=== PATIENT | male | born 1965 ===

== ENCOUNTER 2017-12-29 03:04 | Inpatient (IN) | payer OTHER ==
--- NOTE | 2017-12-29 04:01 | ED PDOC ---
Hyperglycemia/Hypoglycemia Time Seen by Provider: 12/29/17 03:11 Chief Complaint (Nursing): High Blood Sugar Chief Complaint (Provider): High Blood Sugar History Per: Patient History/Exam Limitations: no limitations Onset/Duration Of Symptoms: Days : The patient does not have any of the infectious symptoms listed except for those marked. Additional Complaint(s): 52 y/o male with a PMHx of HTN, high cholesterol and Type II Diabetes presents to the ED for possible hypoglycemia. Family states he isn't taking medications as prescribed and poor diet complaints. Patient was found in the bathroom altered. Family reports patient lost control of his body. EMS called and finger stick resulted in 40. An amp of D50 and symptoms resolved. Patient also reports of one episode of vomiting and two episodes of diarrhea today. Patient states he is currently fine and is much better. PMD: None Provided Past Medical History Reviewed: Historical Data, Nursing Documentation, Vital Signs Vital Signs: Last Vital Signs Temp 98.8 F 12/29/17 03:05 Pulse 76 12/29/17 03:05 Resp 18 12/29/17 03:05 BP 181/97 H 12/29/17 03:05 Pulse Ox 100 12/29/17 03:05 - Medical History PMH: Diabetes (Type II), HTN, Hypercholesterolemia, Hyperlipidemia - Surgical History Surgical History: No Surg Hx - Family History Family History: States: Unknown Family Hx - Home Medications Home Medications: Ambulatory Orders Medication Instructions Recorded Aspirin [Aspirin Chewable] 1 tab PO DAILY 12/29/17 Atorvastatin [Lipitor] 1 tab PO DAILY 12/29/17 Furosemide [Lasix] 1 tab PO Q2W 12/29/17 GlipiZIDE [Glucotrol] 1 tab PO BID 12/29/17 Lisinopril [Zestril] 1 tab PO DAILY 12/29/17 amLODIPine [Norvasc] 1 tab PO DAILY 12/29/17 hydroCHLOROthiazide [Hydrodiuril] 1 tab PO DAILY 12/29/17 - Allergies Allergies/Adverse Reactions: Allergies Allergy/AdvReac Type Severity Reaction Status Date / Time No Known Allergies Allergy Verified 12/29/17 03:17 Review of Systems ROS Statement: Except As Marked, All Systems Reviewed And Found Negative Constitutional: Positive for: Other (Low Blood Sugar) Physical Exam - Reviewed Nursing Documentation Reviewed: Yes Vital Signs Reviewed: Yes - Physical Exam Appears: Positive for: No Acute Distress Head Exam: Positive for: ATRAUMATIC, NORMOCEPHALIC Skin: Positive for: Normal Color, Warm, Dry Eye Exam: Positive for: EOMI, Normal appearance, PERRL Neck: Positive for: Normal, Painless ROM, Supple Cardiovascular/Chest: Positive for: Regular Rate, Rhythm. Negative for: Murmur Respiratory: Positive for: Normal Breath Sounds. Negative for: Respiratory Distress Gastrointestinal/Abdominal: Positive for: Normal Exam, Soft. Negative for: Tenderness Back: Positive for: Normal Inspection. Negative for: L CVA Tenderness, R CVA Tenderness, Vertebral Tenderness Extremity: Positive for: Normal ROM. Negative for: Pedal Edema, Deformity Neurologic/Psych: Positive for: Alert, Oriented. Negative for: Motor/Sensory Deficits - Laboratory Results Result Diagrams: 12/29/17 03:55 12/29/17 03:55 - ECG O2 Sat by Pulse Oximetry: 100 (RA) Medical Decision Making Medical Decision Making: A/P: 52 y/o male with a PMHx of Type II diabetes, HTN, and high cholesterol presents to the ED complaining of resolved hypoglycemia. -- Patient is non-compliant with medication. -- Well appearing with stable vital and still continue to monitor for re- current hypoglycemia. Time: 354 Plan: -- BMP -- CBC -- Glucose, POC Routine Time: 423 Patient is in renal failure. Will admit for IVF, renal consult, and further testing. Dr. Abrams aware. Plan: -- EKG -- Magnesium -- Phosphorus -- CXR Two Views -- Sodium Chloride IV 250 mls/hr Scribe Attestation: Documented by Placido Mckeon acting as a scribe for Dr. Eladio Russell MD. Provider Scribe Attestation: All medical record entries made by the Scribe were at my direction and personally dictated by me. I have reviewed the chart and agree that the record accurately reflects my personal performance of the history, physical exam, medical decision making, and the department course for this patient. I have also personally directed, reviewed, and agree with the discharge instructions and disposition. Disposition - Clinical Impression Clinical Impression: Renal failure - Disposition Disposition Time: 05:30 Condition: FAIR
[2017-12-29 04:05] LABS: HEMOGLOBIN 9.8 g/dL (12.0-18.0); MEAN CELL VOLUME 86.4 fl (80.0-94.0); MEAN CORPUSCULAR HEMOGLOBIN 30.2 pg (27.0-31.0); MEAN CORPUSCULAR HGB CONC 34.9 g/dL (33.0-37.0); RBC 3.26 Mil/uL (4.40-5.90); RED CELL DISTRIBUTION WIDTH 14.7 % (11.5-14.5); WHITE BLOOD COUNT 9.3 K/uL (4.8-10.8)
[2017-12-29 04:13] LABS: CALCIUM 6.8 mg/dL (8.4-10.2)
[2017-12-29] MEDS ORDERED: Sodium Chloride 0.9% 1,000 ML IV STA (04:24)
[2017-12-29] MEDS ORDERED: Metoprolol 1 mg/ml Inj IVP STA (05:20)
[2017-12-29] MEDS ORDERED: Metoprolol 1 mg/ml Inj IVP ONE (05:21)
--- NOTE | 2017-12-29 05:32 | CP.PCM.HP ---
History of Present Illness - History of Present Illness History of Present Illness: PMD: [facility] Chief complaint: AMS The patient was seen and examined in the ED with his family present. HPI: This is a 52 years old male with hx of DM II, HTN, Kidney failure and due for renal Ultrasound on 01/04/18 in [place]. He has been having low blood sugar for weeks and had his Antidiabetic medication changed to Glipizide one week ago. For 3 days he was with diarrhea vomiting and feeling weak .EMS found in the bathroom feeling very weak and not himself. His blood Glucose was 40mg/dl. After one Ampule of 50% Dextrose the patient's Symptoms improved. No SOB nor Chest pain. He does suffer with an epigastric pain. PMH: DM II; HTN; HLD; Renal Failure with only 20% functioning; Psoriasis; leg edemas; PSH: No Surg Hx SH: Former smoker; Former Alcohol drinker; No illegal drug use; Live with family ; worked as a cook FH: Mother with DM Father with alcoholic liver Cirrhosis Allergies: NKDA Medication: Reviewed Present on Admission - Present on Admission Any Indicators Present on Admission: No History of DVT/PE: No History of Uncontrolled Diabetes: No Urinary Catheter: No Decubitus Ulcer Present: No Review of Systems - Constitutional Constitutional: absent: Chills, Fever, Headache - EENT Eyes: Requires Corrective Lenses Ears: absent: Decreased Hearing, Ear Discharge, Tinnitus Nose/Mouth/Throat: absent: Epistaxis, Nasal Congestion, Nasal Discharge, Sinus Pain, Sinus Pressure - Cardiovascular Cardiovascular: Edema. absent: Chest Pain, Dyspnea - Respiratory Respiratory: absent: Dyspnea - Gastrointestinal Gastrointestinal: Diarrhea, Nausea, Vomiting - Genitourinary Genitourinary: absent: Dysuria, Flank Pain, Urinary Frequency - Musculoskeletal Musculoskeletal: Muscle Weakness - Integumentary Integumentary: Pruritus, Rash, Swelling - Neurological Neurological: Weakness. absent: Confusion, Focal Weakness - Psychiatric Psychiatric: absent: Anxiety, Depression, Panic Attacks - Endocrine Endocrine: absent: Palpitations, Polydipsia, Polyphagia, Polyuria - Hematologic/Lymphatic Hematologic: absent: Easy Bleeding, Easy Bruising Past Patient History - Past Medical History & Family History Past Medical History?: Yes - Past Social History Smoking Status: Former Smoker Chewing Tobacco Use: No Cigar Use: No Alcohol: Other Drugs: Denies Home Situation {Lives}: With Family - CARDIAC Hx Hypercholesterolemia: Yes Hx Hypertension: Yes - PULMONARY Hx Respiratory Disorders: No - NEUROLOGICAL Hx Neurological Disorder: No - HEENT Hx HEENT Problems: No - RENAL Hx Renal Failure: Yes - ENDOCRINE/METABOLIC Hx Diabetes Mellitus Type 2: Yes - HEMATOLOGICAL/ONCOLOGICAL Hx Blood Disorders: No - INTEGUMENTARY Hx Psoriasis: Yes - MUSCULOSKELETAL/RHEUMATOLOGICAL Hx Musculoskeletal Disorders: No - GASTROINTESTINAL Hx Gastrointestinal Disorders: No - GENITOURINARY/GYNECOLOGICAL Hx Genitourinary Disorders: No - PSYCHIATRIC Hx Psychophysiologic Disorder: No Hx Substance Use: No - SURGICAL HISTORY Hx Surgeries: No - ANESTHESIA Hx Anesthesia: No Meds Allergies/Adverse Reactions: Allergies Allergy/AdvReac Type Severity Reaction Status Date / Time No Known Allergies Allergy Verified 12/29/17 03:17 Physical Exam - Constitutional Appears: No Acute Distress - Head Exam Head Exam: ATRAUMATIC, NORMAL INSPECTION, NORMOCEPHALIC - Eye Exam Eye Exam: EOMI, Normal appearance Pupil Exam: NORMAL ACCOMODATION, PERRL - ENT Exam ENT Exam: Mucous Membranes Dry, Normal Exam, Normal External Ear Exam - Neck Exam Neck exam: Positive for: Full Rom, Normal Inspection. Negative for: Lymphadenopathy, Tenderness - Respiratory Exam Respiratory Exam: Clear to Auscultation Bilateral. absent: Rales, Rhonchi, Wheezes - Cardiovascular Exam Cardiovascular Exam: REGULAR RHYTHM, RRR, +S2. absent: Gallop, JVD - GI/Abdominal Exam GI & Abdominal Exam: Normal Bowel Sounds, Soft. absent: Mass, Organomegaly, Tenderness - Rectal Exam Rectal Exam: Deferred - Extremities Exam Extremities exam: Positive for: pedal edema Additional comments: 1+ pitting edema both lower extremities - Back Exam Back exam: NORMAL INSPECTION. absent: CVA tenderness (L), CVA tenderness (R) - Neurological Exam Neurological exam: Alert, CN II-XII Intact, Oriented x3, Reflexes Normal - Psychiatric Exam Psychiatric exam: Normal Affect, Normal Mood - Skin Skin Exam: Dry, Normal Color, Rash, Warm Results - Vital Signs Recent Vital Signs: Last Vital Signs Temp 98.8 F 12/29/17 03:05 Pulse 82 12/29/17 04:33 Resp 16 12/29/17 04:33 BP 163/102 H 12/29/17 04:33 Pulse Ox 98 12/29/17 04:33 - Labs Result Diagrams: 12/29/17 03:55 12/29/17 03:55 Labs: Laboratory Results - last 24 hr 12/29/17 12/29/17 12/29/17 03:18 03:50 03:55 WBC RBC Hgb Hct MCV MCH MCHC RDW Plt Count Sodium 131 L Potassium 5.0 Chloride 102 Carbon Dioxide 20 L Anion Gap 14 BUN 63 H Creatinine 7.0 H Est GFR ( Amer) 10 Est GFR (Non-Af Amer) 8 POC Glucose (mg/dL) 132 H Random Glucose 101 Calcium 6.8 L Phosphorus 4.9 H Magnesium 1.4 L 12/29/17 03:55 WBC 9.3 RBC 3.26 L Hgb 9.8 L Hct 28.1 L MCV 86.4 MCH 30.2 MCHC 34.9 RDW 14.7 H Plt Count 283 Sodium Potassium Chloride Carbon Dioxide Anion Gap BUN Creatinine Est GFR ( Amer) Est GFR (Non-Af Amer) POC Glucose (mg/dL) Random Glucose Calcium Phosphorus Magnesium - EKG Data EKG comments: NSR 70/min - Imaging and Cardiology Chest x-ray Status: Image reviewed by me Additional comment: No infiltrate Assessment & Plan - Assessment and Plan (Free Text) Assessment: #. DM with Hypoglycemia #. AMS #. CKD #. Anemia #. HTN #. Psoriasis Plan: 52 years old male with hx of DM II, HTN, Kidney failure and due for renal Ultrasound on 01/04/18 in [place]. Comes with 3 days of low blood glucose diarrhea vomiting and one day of feeling weak .EMS found in the bathroom feeling very weak and not himself. His blood Glucose was 40mg/dl. After one Ampule of 50% Dextrose the patient's Symptoms improved. #. DM with Hypoglycemia - Hold Glipizide - Regular Insulin sliding scale according to Accuchecck ACHS - HbA1c #. AMS secondary to Metabolic encephalopathy with Hypoglycemia - Treat Hypoglycemia and Renal failure #. CKD - Consult Nephrology Dr Jarquin - IV fluids - Kidney Ultra Sound - Renal blood work #. Anemia of Chronic Kidney disease - Follow Iron panel - #. HTN - Hold Lisinopril - Hold amlodipine which could be causing leg edema - Labetalol - Hydralazine #. Psoriasis - For Outpatient treatment #. DVT Prophylaxis with Heparin #. Stress ulcer prophylaxis with Pantoprazole #. Code Status: full - Date & Time Date: 12/29/17 Time: 05:31
[2017-12-29] MEDS: Insulin Regular 100 units/ml SC SCH ×4 (07:55→22:31)
--- NOTE | 2017-12-29 08:16 | RAD ---
Date of service: 12/29/2017 HISTORY: renal failure COMPARISON: No prior. TECHNIQUE: Chest PA and lateral FINDINGS: LUNGS: No active pulmonary disease. PLEURA: No significant pleural effusion identified. No pneumothorax apparent. CARDIOVASCULAR: Normal. OSSEOUS STRUCTURES: Thoracic spondylosis. VISUALIZED UPPER ABDOMEN: Normal. OTHER FINDINGS: None. IMPRESSION: No active disease.
--- NOTE | 2017-12-29 09:29 | CARD ---
APPROVED REPORT Date of service: 12/29/2017 EKG Measurement Heart [id number] [id number] <Conclusion> Normal sinus rhythm Normal ECG
[2017-12-29 10:27] LABS: IRON 49 ug/dL (49-181)
[2017-12-29 10:37] LABS: % IRON SATURATION 24 % (20-55); TOTAL IRON BINDING CAPACITY 205 ug/dL (250-450)
[2017-12-29] MEDS ORDERED: Pneumococcal 23-Valent Vaccine IM ONE (12:31)
[2017-12-29] MEDS ORDERED: Sodium Chloride 0.9% 1,000 ML IV SCH (12:45)
[2017-12-29] MEDS: Pantoprazole 40 mg EC Tab PO SCH (12:49)
--- NOTE | 2017-12-29 12:53 | CP.PCM.PN ---
Subjective - Date & Time of Evaluation Date of Evaluation: 12/29/17 Time of Evaluation: 12:46 - Subjective Subjective: 52 yo M w/ pmh of htn, dm, recently diagnosed psoriasis and renal insufficiency , presented to ED after being found with AMS in bathroom, nephrology being consulted for acute renal failure; Patient reports diarrhea that started 2 days ago and continued yesterday; also with one episode of vomiting yesterday; he otherwise reports being told about new renal insufficiency about a month ago and was seen by nephrology clinic for the first time last week; he reports recently developing "psoriasis" as well as rash over lower legs; has been having intermittent leg swelling and dyspnea on climbing stairs but not on ambulation; he denies any dysuria or difficulty urinating; PMH: as above; denies any heart disease FH: Mother with DM; Social Hx: Previous smoker, stopped 6 months ago; previous heavy drinker; denies illicit drugs Objective - Vital Signs/Intake and Output Vital Signs (last 24 hours): Temp Pulse Resp BP Pulse Ox 97.9 F 69 19 152/84 H 99 12/29/17 09:00 12/29/17 09:32 12/29/17 09:00 12/29/17 09:32 12/29/17 09:00 - Medications Medications: Current Medications Aspirin (Aspirin Chewable) 81 mg PO DAILY [facility] Last Admin: 12/29/17 09:32 Dose: 81 mg Atorvastatin Calcium (Lipitor) 40 mg PO DAILY [facility] Last Admin: 12/29/17 09:32 Dose: 40 mg Heparin Sodium (Porcine) (Heparin) 5,000 units SC Q8 [facility] PRN Reason: Protocol Last Admin: 12/29/17 09:33 Dose: 5,000 units Hydralazine HCl (Apresoline) 25 mg PO TID [facility] Last Admin: 12/29/17 09:32 Dose: 25 mg Sodium Chloride (Sodium Chloride 0.9%) 1,000 mls @ 75 mls/hr IV [id number] [facility] Stop: 12/30/17 15:24 Insulin Human Regular (Humulin R) 0 units SC ACHS [facility] PRN Reason: Protocol Last Admin: 12/29/17 07:55 Dose: Not Given Labetalol HCl (Trandate) 100 mg PO BID [facility] Last Admin: 12/29/17 09:32 Dose: 100 mg Pantoprazole Sodium (Protonix Ec Tab) 40 mg PO DAILY [facility] - Labs Labs: 12/29/17 03:55 12/29/17 03:55 - Constitutional Appears: Non-toxic, No Acute Distress - Eye Exam Eye Exam: Periorbital swelling. absent: Scleral icterus - ENT Exam ENT Exam: Mucous Membranes Moist - Respiratory Exam Respiratory Exam: Clear to Ausculation Bilateral. absent: Respiratory Distress - Cardiovascular Exam Cardiovascular Exam: RRR, +S1, +S2 - GI/Abdominal Exam GI & Abdominal Exam: Soft. absent: Bruit, Distended, Tenderness - Exam Exam: absent: Bladder Distension - Extremities Exam Additional comments: Moderate b/l lower leg edema; - Neurological Exam Neurological Exam: Alert, Awake Additional comments: no asterixis; - Psychiatric Exam Psychiatric exam: Normal Affect, Normal Mood - Skin Skin Exam: Warm. absent: Cyanosis Assessment and Plan (1) Acute renal failure Assessment & Plan: New onset over past month per patient's history; may have superimposed pre- renal component due to diarrhea/vomiting, however, increased echogenicity on US indicative of some degree of chronicity (lower ext edema and hypocalcemia also indicate that this is more than just pre-renal picture); need to assess for proteinuria before pursuing extensive serologic workup; Otherwise, relatively stably volume and electrolyte status; no overt uremic signs/symptoms currently; no urgent indication for HD at this time; -Ordering UA, urine lytes, urine protein, microalbumin and creatinine; -If proteinuria present, will order complements, ANCA, HIV, Hep B and C serologies, CRISELDA, anti-GBM Ab, SPEP/Immunofixation, serum free light chains; -Continue IVF w/ NS at 75 cc/hr; -Avoid nephrotoxic agents; -Will try to obtain lab records from [facility] Status: Acute (2) HTN (hypertension) Assessment & Plan: BP elevated but better controlled; agree with holding CHITRA inhibitor; -can continue current regimen of hydralazine and labetalol; -goal SBP ~140's-150's for now; obtain echo; Status: Acute (3) Anemia Assessment & Plan: Hgb slightly low; iron replete; likely due to renal insufficiency; will monitor BP before giving dose of EPO; Status: Chronic (4) Hypocalcemia Assessment & Plan: Likely higher when correcting for low serum albumin (which itself is concerning for nephrotic syndrome); -checking PTH, 25-OH vit D levels -checing hepatic function panel; Status: Acute - Assessment and Plan (Free Text) Assessment: Thank you for this referral, we will continue to follow closely.
--- NOTE | 2017-12-29 16:21 | US ---
Date of service: 12/29/2017 PROCEDURE: Ultrasound of the Kidneys HISTORY: Creatinine 7.0 COMPARISON: None available. TECHNIQUE: Sonogram of the kidneys. FINDINGS: RIGHT KIDNEY: Measures: 12.9 x 5.9 x 6.1 cm. Kidney size somewhat prominent-however correlation with the patient's height body habitus is advised. The length of the right kidney is maximally 12.9 cm than length of the left kidney is maximally 10.6 cm. Overall echogenicity is increased No stone, solid mass lesion or hydronephrosis visualized. LEFT KIDNEY: Measures: 10.6 x 6.1 x 5.9 cm. Normal in size, contour -but diffuse abnormal echogenicity similar to that in the right kidney. No stone, solid mass lesion or hydronephrosis visualized. OTHER FINDINGS: On images of the bladder neither ureteral jet is visualized. IMPRESSION: Bilateral diffuse renal hyper echogenicity -can be seen with medical renal disease. Elevated creatinine referenced. Right kidney slightly larger than left. No hydronephrosis appreciated. Neither ureteral jet visualized on images of the bladder.
[2017-12-29 18:31] LABS: URINE BACTERIA RARE (<OCC); URINE BILIRUBIN NEGATIVE (NEGATIVE); URINE BLOOD SMALL (NEGATIVE); URINE CLARITY CLEAR (Clear); URINE COLOR STRAW (YELLOW); URINE GLUCOSE (UA) 150 mg/dL (Normal); URINE LEUKOCYTE ESTERASE NEG Leu/uL (Negative); URINE UROBILINOGEN 0.2-1.0 mg/dL (0.2-1.0)
[2017-12-29 18:37] LABS: URINE PROTEIN >=300 mg/dL (NEGATIVE)
[2017-12-29 19:09] LABS: BARBITURATES, UR NEGATIVE (NEGATIVE); BENZODIAZEPINES, UR NEGATIVE (NEGATIVE); OPIATES, UR NEGATIVE (NEGATIVE); PHENCYCLIDINE, UR NEGATIVE (NEGATIVE)
--- NOTE | 2017-12-29 20:49 | CP.PCM.CON ---
History of Present Illness - History of Present Illness History of Present Illness: 52 yo M w/ pmh of htn, dm, recently diagnosed psoriasis and renal insufficiency , presented to ED after being found with AMS in bathroom, nephrology being consulted for acute renal failure; Patient reports diarrhea that started 2 days ago and continued yesterday; also with one episode of vomiting yesterday; he otherwise reports being told about new renal insufficiency about a month ago and was seen by nephrology clinic for the first time last week; he reports recently developing "psoriasis" as well as rash over lower legs; has been having intermittent leg swelling and dyspnea on climbing stairs but not on ambulation; he denies any dysuria or difficulty urinating or frothy urine; Patient also noted to be hypoglycemic by EMS; only taking PO hypoglycemic agent , never on insulin; per family who are at bedside, patient only relatively recently started taking his meds; was also started on a new medication recently but they don't know which one; PMH: as above; denies any heart disease FH: Mother with DM; denies any kidney disease; Social Hx: Previous smoker, stopped 6 months ago; previous heavy drinker; denies illicit drugs Review of Systems - Constitutional Constitutional: absent: Anorexia, Weight Loss - EENT Eyes: Blurred Vision Nose/Mouth/Throat: absent: Dysphagia - Cardiovascular Cardiovascular: absent: Chest Pain, Palpitations - Respiratory Respiratory: As Per HPI - Gastrointestinal Gastrointestinal: As Per HPI - Genitourinary Genitourinary: As Per HPI - Musculoskeletal Additional comments: doesn't take any pain meds; - Integumentary Integumentary: As Per HPI - Neurological Neurological: As Per HPI. absent: Dizziness - Psychiatric Psychiatric: absent: Anxiety, Depression Past Patient History - Past Medical History & Family History Past Medical History?: Yes Pertinent Family History: see hpi - Past Social History Smoking Status: Former Smoker Chewing Tobacco Use: No Cigar Use: No Alcohol: Other Drugs: Denies Home Situation {Lives}: With Family - CARDIAC Hx Hypercholesterolemia: Yes Hx Hypertension: Yes - PULMONARY Hx Respiratory Disorders: No - NEUROLOGICAL Hx Neurological Disorder: No - HEENT Hx HEENT Problems: No - RENAL Hx Renal Failure: Yes - ENDOCRINE/METABOLIC Hx Diabetes Mellitus Type 2: Yes - HEMATOLOGICAL/ONCOLOGICAL Hx Blood Disorders: No - INTEGUMENTARY Hx Psoriasis: Yes - MUSCULOSKELETAL/RHEUMATOLOGICAL Hx Musculoskeletal Disorders: No - GASTROINTESTINAL Hx Gastrointestinal Disorders: No - GENITOURINARY/GYNECOLOGICAL Hx Genitourinary Disorders: No - PSYCHIATRIC Hx Psychophysiologic Disorder: No Hx Substance Use: No - SURGICAL HISTORY Hx Surgeries: No - ANESTHESIA Hx Anesthesia: No Meds Allergies/Adverse Reactions: Allergies Allergy/AdvReac Type Severity Reaction Status Date / Time No Known Allergies Allergy Verified 12/29/17 03:17 - Medications Medications: Current Medications Aspirin (Aspirin Chewable) 81 mg PO DAILY [facility] Last Admin: 12/29/17 09:32 Dose: 81 mg Atorvastatin Calcium (Lipitor) 40 mg PO DAILY [facility] Last Admin: 12/29/17 09:32 Dose: 40 mg Heparin Sodium (Porcine) (Heparin) 5,000 units SC Q8 [facility] PRN Reason: Protocol Last Admin: 12/29/17 16:37 Dose: 5,000 units Hydralazine HCl (Apresoline) 25 mg PO TID [facility] Last Admin: 12/29/17 16:36 Dose: 25 mg Sodium Chloride (Sodium Chloride 0.9%) 1,000 mls @ 75 mls/hr IV .[id number] [facility] Stop: 12/30/17 15:24 Last Admin: 12/29/17 12:52 Dose: 75 mls/hr Insulin Human Regular (Humulin R) 0 units SC ACHS [facility] PRN Reason: Protocol Last Admin: 12/29/17 16:39 Dose: 1 u Labetalol HCl (Trandate) 100 mg PO BID [facility] Last Admin: 12/29/17 16:36 Dose: 100 mg Pantoprazole Sodium (Protonix Ec Tab) 40 mg PO DAILY [facility] Last Admin: 12/29/17 12:49 Dose: 40 mg Physical Exam - Constitutional Appears: Non-toxic, No Acute Distress - Eye Exam Eye Exam: Periorbital swelling. absent: Scleral icterus - ENT Exam ENT Exam: Mucous Membranes Moist - Respiratory Exam Respiratory Exam: Clear to Auscultation Bilateral. absent: Respiratory Distress - Cardiovascular Exam Cardiovascular Exam: RRR, +S1, +S2. absent: Gallop, Rubs - GI/Abdominal Exam GI & Abdominal Exam: Soft. absent: Distended, Tenderness - Exam Exam: absent: Bladder Distension - Extremities Exam Extremities exam: Positive for: pedal pulses present Additional comments: moderate b/l lower leg edema; - Neurological Exam Neurological exam: Alert, Oriented x3 Additional comments: no asterixis - Psychiatric Exam Psychiatric exam: Normal Affect, Normal Mood - Skin Skin Exam: Warm Additional comments: numerous macular lesions over b/l lower legs, some blanching; Results - Vital Signs Recent Vital Signs: Last Vital Signs Temp 98.7 F 12/29/17 17:00 Pulse 73 12/29/17 16:36 Resp 18 12/29/17 16:17 BP 161/85 H 12/29/17 16:36 Pulse Ox 98 12/29/17 16:17 - Labs Result Diagrams: 12/29/17 03:55 12/29/17 03:55 Labs: Laboratory Results - last 24 hr 12/29/17 12/29/17 12/29/17 03:18 03:50 03:55 WBC RBC Hgb Hct MCV MCH MCHC RDW Plt Count Sodium 131 L Potassium 5.0 Chloride 102 Carbon Dioxide 20 L Anion Gap 14 BUN 63 H Creatinine 7.0 H Est GFR ( Amer) 10 Est GFR (Non-Af Amer) 8 POC Glucose (mg/dL) 132 H Random Glucose 101 Hemoglobin A1c Calcium 6.8 L Phosphorus 4.9 H Magnesium 1.4 L Iron TIBC % Saturation Urine Color Urine Clarity Urine pH Ur Specific [place] Urine Protein Urine Glucose (UA) Urine Ketones Urine Blood Urine Nitrate Urine Bilirubin Urine Urobilinogen Ur Leukocyte Esterase Urine RBC (Auto) Urine Microscopic WBC Urine Bacteria Ur Random Creatinine Ur Random Sodium Urine Opiates Screen Urine Methadone Screen Ur Barbiturates Screen Ur Phencyclidine Scrn Ur Amphetamines Screen U Benzodiazepines Scrn U Oth Cocaine Metabols U Cannabinoids Screen 12/29/17 12/29/17 12/29/17 03:55 06:19 07:13 WBC 9.3 RBC 3.26 L Hgb 9.8 L Hct 28.1 L MCV 86.4 MCH 30.2 MCHC 34.9 RDW 14.7 H Plt Count 283 Sodium Potassium Chloride Carbon Dioxide Anion Gap BUN Creatinine Est GFR ( Amer) Est GFR (Non-Af Amer) POC Glucose (mg/dL) 92 Random Glucose Hemoglobin A1c 5.9 Calcium Phosphorus Magnesium Iron TIBC % Saturation Urine Color Urine Clarity Urine pH Ur Specific [place] Urine Protein Urine Glucose (UA) Urine Ketones Urine Blood Urine Nitrate Urine Bilirubin Urine Urobilinogen Ur Leukocyte Esterase Urine RBC (Auto) Urine Microscopic WBC Urine Bacteria Ur Random Creatinine Ur Random Sodium Urine Opiates Screen Urine Methadone Screen Ur Barbiturates Screen Ur Phencyclidine Scrn Ur Amphetamines Screen U Benzodiazepines Scrn U Oth Cocaine Metabols U Cannabinoids Screen 12/29/17 12/29/17 12/29/17 10:05 11:03 16:02 WBC RBC Hgb Hct MCV MCH MCHC RDW Plt Count Sodium Potassium Chloride Carbon Dioxide Anion Gap BUN Creatinine Est GFR ( Amer) Est GFR (Non-Af Amer) POC Glucose (mg/dL) 182 H 195 H Random Glucose Hemoglobin A1c Calcium Phosphorus Magnesium Iron 49 TIBC 205 L % Saturation 24 Urine Color Urine Clarity Urine pH Ur Specific [place] Urine Protein Urine Glucose (UA) Urine Ketones Urine Blood Urine Nitrate Urine Bilirubin Urine Urobilinogen Ur Leukocyte Esterase Urine RBC (Auto) Urine Microscopic WBC Urine Bacteria Ur Random Creatinine Ur Random Sodium Urine Opiates Screen Urine Methadone Screen Ur Barbiturates Screen Ur Phencyclidine Scrn Ur Amphetamines Screen U Benzodiazepines Scrn U Oth Cocaine Metabols U Cannabinoids Screen 12/29/17 12/29/17 18:13 18:13 WBC RBC Hgb Hct MCV MCH MCHC RDW Plt Count Sodium Potassium Chloride Carbon Dioxide Anion Gap BUN Creatinine Est GFR ( Amer) Est GFR (Non-Af Amer) POC Glucose (mg/dL) Random Glucose Hemoglobin A1c Calcium Phosphorus Magnesium Iron TIBC % Saturation Urine Color Straw Urine Clarity Clear Urine pH 6.0 Ur Specific [place] 1.008 Urine Protein >=300 Urine Glucose (UA) 150 Urine Ketones Negative Urine Blood Small Urine Nitrate Negative Urine Bilirubin Negative Urine Urobilinogen 0.2-1.0 Ur Leukocyte Esterase Neg Urine RBC (Auto) 2 Urine Microscopic WBC 3 Urine Bacteria Rare Ur Random Creatinine 35.0 Ur Random Sodium 29 Urine Opiates Screen Negative Urine Methadone Screen Negative Ur Barbiturates Screen Negative Ur Phencyclidine Scrn Negative Ur Amphetamines Screen Negative U Benzodiazepines Scrn Negative U Oth Cocaine Metabols Negative U Cannabinoids Screen Negative - Imaging and Cardiology US - abdomen Status: Image reviewed by me Additional comment: Renal US showing b/l echogenic kidneys, no hydro; Assessment & Plan (1) Acute renal failure Assessment and Plan: New onset over past month per patient's history; may have superimposed pre- renal component due to diarrhea/vomiting, however, increased echogenicity on US indicative of some degree of chronicity (lower ext edema and hypocalcemia also indicate that this is more than just pre-renal picture); need to assess for proteinuria before pursuing extensive serologic workup; Otherwise, relatively stable volume and electrolyte status; no overt uremic signs/symptoms currently; no urgent indication for HD at this time; -Ordering UA, urine lytes, urine protein, microalbumin and creatinine; -If proteinuria present, will order complements, ANCA, HIV, Hep B and C serologies, CRISELDA, anti-GBM Ab, SPEP/Immunofixation, serum free light chains; -Continue IVF w/ NS at 75 cc/hr; -Avoid nephrotoxic agents; -Will try to obtain lab records from [facility] Status: Acute (2) HTN (hypertension) Assessment and Plan: BP elevated but better controlled; agree with holding CHITRA inhibitor; -can continue current regimen of hydralazine and labetalol; -goal SBP ~140's-150's for now; obtain echo; Status: Acute (3) Anemia Assessment and Plan: Hgb slightly low; iron replete; likely due to renal insufficiency; will monitor BP before giving dose of EPO; Status: Chronic (4) Hypocalcemia Assessment and Plan: Ca level likely higher when correcting for low serum albumin (which itself is concerning for nephrotic syndrome); -checking PTH, 25-OH vit D levels -checking hepatic function panel; Status: Acute (5) Hyponatremia Assessment and Plan: Mild, possibly due to some degree of volume depletion; will recheck after given adequate IVF; Status: Acute
--- NOTE | 2017-12-29 21:00 | CARD ---
APPROVED REPORT Date of service: 12/29/2017 EXAM: Two-dimensional and M-mode echocardiogram with Doppler and color Doppler. Other Information Quality : GoodRhythm : NSR INDICATION Congestive Heart Failure 2D DIMENSIONS IVSd1.56 (0.7-1.1cm)LVDd4.72 (3.9-5.9cm) LVOT Diameter2.23 (1.8-2.4cm)PWd1.19 (0.7-1.1cm) IVSs1.88 (0.8-1.2cm)LVDs3.17 (2.5-4.0cm) FS (%) 33.0 %PWs1.58 (0.8-1.2cm) M-Mode DIMENSIONS Left Atrium (MM)4.24 (2.5-4.0cm)IVSd1.18 (0.7-1.1cm) Aortic Root3.12 (2.2-3.7cm)LVDd5.85 (4.0-5.6cm) Aortic Cusp Exc.1.82 (1.5-2.0cm)PWd1.21 (0.7-1.1cm) IVSs2.03 cmFS (%) 40 % LVDs3.53 (2.0-3.8cm)PWs1.65 cm Aortic Valve AoV Peak Oolpfxbx372.1cm/sAoV VTI36.6cmAO Peak GR.12mmHg LVOT Peak Lqnihtvp278.6cm/sLVOT VTI26.69cmAO Mean GR.7mmHg SANDRA (VMAX)1.73ql0WMN (VTI)1.56cm2 Mitral Valve MV E Dksspkdu348.1cm/sMV DECEL [id number] A Ngbgclji18.3cm/s MV UXJ49ufT/A ratio1.2MVA (PHT)3.30cm2 TDI Lateral E' Peak V9.13cm/sMedial E' Peak V6.93cm/sE/Lateral E'12.8 E/Medial E'16.9 Pulmonary Valve PV Peak Mdusngdu156.5cm/s Tricuspid Valve TR Peak Uyxkpzdj424bq/sRAP [id number] Peak Gr.30mmHg [id number] LEFT VENTRICLE The left ventricle is normal size. There is mild concentric left ventricular hypertrophy. The left ventricular function is normal. The left ventricular ejection fraction is within the normal range, with EF 55%. No regional wall motion abnormalities noted. Transmitral Doppler flow pattern is Grade II-pseudonormal filling dynamics. No left ventricle thrombus noted on this study. There is no ventricular septal defect visualized. There is no left ventricular aneurysm. There is no mass noted in the left ventricle. RIGHT VENTRICLE The right ventricle is normal size. There is normal right ventricular wall thickness. The right ventricular systolic function is normal. ATRIA The left atrium size is normal. The left atrium is mildly dilated. The right atrium size is normal. The interatrial septum is intact with no evidence for an atrial septal defect. AORTIC VALVE The aortic valve is normal in structure. No aortic regurgitation is present. There is no aortic valvular stenosis. There is no aortic valvular vegetation. MITRAL VALVE The mitral valve is normal in structure. There is no evidence of mitral valve prolapse. There is no mitral valve stenosis. There is no mitral valve regurgitation noted. TRICUSPID VALVE The tricuspid valve is normal in structure. There is mild tricuspid regurgitation. Right ventricular systolic pressure is estimated at 30-40 mmHg. There is no tricuspid valve prolapse or vegetation. There is no tricuspid valve stenosis. PULMONIC VALVE The pulmonary valve is normal in structure. There is no pulmonic valvular regurgitation. There is no pulmonic valvular stenosis. GREAT VESSELS The aortic root is normal in size. The ascending aorta is normal in size. The pulmonary artery is normal. The IVC is normal in size and collapses >50% with inspiration. PERICARDIAL EFFUSION The pericardium appears normal. There is no pleural effusion. <Conclusion> The left ventricular ejection fraction is within the normal range, with EF 55%. There is mild concentric left ventricular hypertrophy. The left atrium is mildly dilated. Transmitral Doppler flow pattern is Grade II-pseudonormal filling dynamics. There is mild tricuspid regurgitation. Right ventricular systolic pressure is estimated at 30-40 mmHg.
[2017-12-29 21:25] LABS: PROTHROMBIN TIME 11.2 Seconds (9.8-13.1)
[2017-12-29 21:28] LABS: PARTIAL THROMBOPLASTIN TIME 35.8 Seconds (25.6-37.1)
[2017-12-29 21:34] LABS: ALB/GLOB RATIO 0.9 (1.0-2.1); ALBUMIN 2.3 g/dL (3.5-5.0); ALT/SGPT 33 U/L (21-72); AST/SGOT 39 U/L (17-59); BLOOD UREA NITROGEN 59 mg/dl (9-20); CALCIUM 6.5 mg/dL (8.4-10.2); GFR AFRICAN-AMERICAN 10; GFR NON-AFRICAN AMERICAN 8
[2017-12-29 22:31] LABS: ALB/GLOB RATIO 0.9 (1.0-2.1); ALBUMIN 2.3 g/dL (3.5-5.0); BILIRUBIN,DIRECT 0.2 mg/ml (0.0-0.4)
[2017-12-30 07:31] LABS: BASO # 0.1 K/uL (0.0-0.2); BASO % 1.2 % (0.0-2.0); EOS # 0.3 K/uL (0.0-0.7); EOS % 3.9 % (0.0-4.0); HEMOGLOBIN 8.3 g/dL (12.0-18.0); LYMPH # 1.7 K/uL (1.0-4.3); LYMPH % 24.1 % (20.0-40.0); MEAN CELL VOLUME 87.1 fl (80.0-94.0); MEAN CORPUSCULAR HEMOGLOBIN 29.6 pg (27.0-31.0); MEAN PLATELET VOLUME 8.5 fl (7.2-11.7); MONO # 0.4 K/uL (0.0-0.8); MONO % 5.8 % (0.0-10.0); NEUT # 4.6 K/uL (1.8-7.0); NRBC % 0.1 % (0.0-0.0); RBC 2.8 Mil/uL (4.40-5.90); RED CELL DISTRIBUTION WIDTH 15.1 % (11.5-14.5); WHITE BLOOD COUNT 7.1 K/uL (4.8-10.8)
[2017-12-30 07:46] LABS: ALB/GLOB RATIO 0.9 (1.0-2.1); ALBUMIN 2.3 g/dL (3.5-5.0); CALCIUM 6.9 mg/dL (8.4-10.2)
[2017-12-30] MEDS: Insulin Regular 100 units/ml SC SCH ×4 (07:56→22:32)
[2017-12-30] MEDS ORDERED: Sodium Chloride 0.9% 1,000 ML IV SCH (08:00)
[2017-12-30] MEDS: Pantoprazole 40 mg EC Tab PO SCH (08:34)
[2017-12-30 12:05] LABS: COMPLEMENT C4 29.4 mg/dL (14.0-44.0)
[2017-12-30 12:33] LABS: HEPATITIS B SURFACE AG Negative (NEGATIVE)
[2017-12-30 12:50] LABS: HEPATITIS C ANTIBODY NEGATIVE (NEGATIVE)
--- NOTE | 2017-12-30 15:50 | CP.PCM.PN ---
Subjective - Date & Time of Evaluation Date of Evaluation: 12/30/17 Time of Evaluation: 14:45 - Subjective Subjective: Pt feels better after he got admitted no longer as weak as when he was brought in denies CP no SOB no abd pain Crea trending up to 7.6 Plan for Renal biopsy in am Objective - Vital Signs/Intake and Output Vital Signs (last 24 hours): Temp Pulse Resp BP Pulse Ox 97.7 F 70 18 145/82 97 12/30/17 08:20 12/30/17 13:57 12/30/17 08:20 12/30/17 13:57 12/30/17 08:20 - Medications Medications: Current Medications Aspirin (Aspirin Chewable) 81 mg PO DAILY [facility] Last Admin: 12/29/17 09:32 Dose: 81 mg Atorvastatin Calcium (Lipitor) 40 mg PO DAILY [facility] Last Admin: 12/30/17 08:34 Dose: 40 mg Heparin Sodium (Porcine) (Heparin) 5,000 units SC Q8 [facility] PRN Reason: Protocol Stop: 12/31/17 00:00 Last Admin: 12/30/17 09:00 Dose: 5,000 units Hydralazine HCl (Apresoline) 25 mg PO TID [facility] Last Admin: 12/30/17 12:09 Dose: 25 mg Sodium Chloride (Sodium Chloride 0.9%) 1,000 mls @ 75 mls/hr IV .[id number] [facility] Stop: 01/01/18 13:19 Last Admin: 12/30/17 08:35 Dose: 75 mls/hr Insulin Human Regular (Humulin R) 0 units SC ACHS [facility] PRN Reason: Protocol Last Admin: 12/30/17 11:15 Dose: Not Given Labetalol HCl (Trandate) 200 mg PO Q8H [facility] Last Admin: 12/30/17 13:56 Dose: 200 mg Pantoprazole Sodium (Protonix Ec Tab) 40 mg PO DAILY [facility] Last Admin: 12/30/17 08:34 Dose: 40 mg - Labs Labs: 12/30/17 06:42 12/30/17 06:42 PT 11.2 Seconds (9.8-13.1) 12/29/17 20:30 INR 1.0 12/29/17 20:30 APTT 35.8 Seconds (25.6-37.1) 12/29/17 20:30 - Constitutional Appears: No Acute Distress - Head Exam Head Exam: ATRAUMATIC, NORMAL INSPECTION, NORMOCEPHALIC - Eye Exam Eye Exam: EOMI, Normal appearance Pupil Exam: NORMAL ACCOMODATION - ENT Exam ENT Exam: Mucous Membranes Moist, Normal External Ear Exam - Neck Exam Neck Exam: Full ROM. absent: Meningismus - Respiratory Exam Respiratory Exam: NORMAL BREATHING PATTERN. absent: Respiratory Distress - Cardiovascular Exam Cardiovascular Exam: REGULAR RHYTHM, +S1, +S2 - GI/Abdominal Exam GI & Abdominal Exam: Soft, Normal Bowel Sounds. absent: Tenderness - Extremities Exam Extremities Exam: Full ROM, Normal Capillary Refill. absent: Calf Tenderness - Back Exam Back Exam: absent: CVA tenderness (L), CVA tenderness (R) - Neurological Exam Neurological Exam: Alert, Awake, CN II-XII Intact, Oriented x3 Neuro motor strength exam: Left Upper Extremity: 5, Right Upper Extremity: 5, Left Lower Extremity: 5, Right Lower Extremity: 5 - Psychiatric Exam Psychiatric exam: Normal Affect, Normal Mood - Skin Skin Exam: Dry, Normal Color, Warm Additional comments: bilateral lower extremity dry hyperpigmented rash Assessment and Plan - Assessment and Plan (Free Text) Assessment: 52 years old male with hx of DM II, HTN, Chronic Kidney failure, Psoriasis follows up at [facility] in [place]. Comes with 3 days of low blood glucose diarrhea , vomiting and one day of feeling weak . EMS found patient in the bathroom feeling very weak and not himself. His blood Glucose was 40mg/dl. After one Ampule of 50% Dextrose the patient's yymptoms improved. 1. DM type II with Hypoglycemia - Hold Glipizide - Insulin sliding scale according to Accuchecck ACHS - HbA1c= 5.9 2. AMS secondary to Metabolic encephalopathy with Hypoglycemia, resolved 3. Acute REnal failure on CKD stage IV - Consulted Nephrology Dr Jarquin - IV fluids - Renal Sonogram: diffuse hyperechogenicity, no hydronephrosis - Plan for renal biopsy in am - Pt's Crea was 2.8 in May 2017 , went up to 4.6 in August - in ED Crea=7.3 4. Anemia of Chronic Kidney disease - 5. HTN - Hold Lisinopril - Hold amlodipine which could be causing leg edema -cont Labetalol and Hydralazine #. DVT Prophylaxis with Heparin #. Stress ulcer prophylaxis with Pantoprazole #. Code Status: full
--- NOTE | 2017-12-30 20:48 | CP.PCM.PN ---
Subjective - Date & Time of Evaluation Date of Evaluation: 12/30/17 Time of Evaluation: 20:35 - Subjective Subjective: 52 yo M w/ pmh of htn, dm, admitted with hypoglycemia, found to have JOSHUA on advanced CKD; Patient reports feeling better; denies sob, nausea/vomiting; tolerating diet; urinating well; Objective - Vital Signs/Intake and Output Vital Signs (last 24 hours): Temp Pulse Resp BP Pulse Ox 98 F 67 18 134/78 98 12/30/17 16:00 12/30/17 16:00 12/30/17 16:00 12/30/17 16:00 12/30/17 16:00 - Medications Medications: Current Medications Atorvastatin Calcium (Lipitor) 40 mg PO DAILY [facility] Last Admin: 12/30/17 08:34 Dose: 40 mg Heparin Sodium (Porcine) (Heparin) 5,000 units SC Q8 [facility] PRN Reason: Protocol Stop: 12/31/17 00:00 Last Admin: 12/30/17 16:10 Dose: 5,000 units Hydralazine HCl (Apresoline) 25 mg PO TID [facility] Last Admin: 12/30/17 16:10 Dose: 25 mg Insulin Human Regular (Humulin R) 0 units SC ACHS [facility] PRN Reason: Protocol Last Admin: 12/30/17 16:23 Dose: Not Given Labetalol HCl (Trandate) 200 mg PO Q8H [facility] Last Admin: 12/30/17 13:56 Dose: 200 mg Pantoprazole Sodium (Protonix Ec Tab) 40 mg PO DAILY [facility] Last Admin: 12/30/17 08:34 Dose: 40 mg - Labs Labs: 12/30/17 06:42 12/30/17 06:42 PT 11.2 Seconds (9.8-13.1) 12/29/17 20:30 INR 1.0 12/29/17 20:30 APTT 35.8 Seconds (25.6-37.1) 12/29/17 20:30 - Constitutional Appears: Non-toxic, No Acute Distress - Eye Exam Eye Exam: absent: Scleral icterus - ENT Exam ENT Exam: Mucous Membranes Moist - Respiratory Exam Respiratory Exam: Clear to Ausculation Bilateral. absent: Respiratory Distress - Cardiovascular Exam Cardiovascular Exam: RRR, +S1, +S2. absent: Gallop, JVD - GI/Abdominal Exam GI & Abdominal Exam: Soft. absent: Distended, Tenderness - Exam Exam: absent: Bladder Distension - Extremities Exam Additional comments: moderate b/l lower leg edema; - Neurological Exam Neurological Exam: Alert, Awake - Psychiatric Exam Psychiatric exam: Normal Affect, Normal Mood. absent: Agitated - Skin Skin Exam: Warm. absent: Cyanosis Assessment and Plan (1) Acute renal failure Assessment & Plan: JOSHUA on CKD IV vs progression of CKD; clinic records from this year reviewed; serum creatinine in 2's in 05/2017, increased to 4's in August 2017; patient with nephrotic syndrome likely secondary to DM but still awaiting rest of serologic workup to result; also, marked pyuria on my direct urine microscopy indicative of possible superimposed renal pathology (AIN?); planning on renal biopsy to confirm etiology of CKD and to look for possibility of treatable cause; Patient and family counseled extensively today (30 minutes) on dialysis planning including modalities of dialysis, dialysis access and possibility of renal transplant in the future; Currently no urgent indication for initating dialysis with patient having no overt uremic symptoms and with stable lytes/volume status; However, patient/family advised that if no indication that renal function can improve significantly (after biopsy results), patient should be initiated on dialysis during current hospitalization and have setup for outpatient HD before d/c; -Obtaining vein mapping; -f/u rest of serologic results; -f/u with IR for renal biopsy (ASA held from today); -d/c IVF; -Obtaining 24 hour urine to confirm proteinuria, checking creatinine clearance; Status: Acute (2) Nephrotic syndrome Assessment & Plan: With >5 g of just albuminuria on spot albumin/creat ratio and marked hypoalbuminemia/lower ext edema; likely due to DM but will await further workup/ renal biopsy; no role for NANCY blockade at this advanced level of renal failure; Status: Chronic (3) HTN (hypertension) Assessment & Plan: BP controlled on labetalol and hydralazine; continue same; Status: Acute (4) Anemia Assessment & Plan: Hgb drop likely due to hemodilution from IVF; nevertheless, has anemia from CKD; -starting EPO 10,000 u qMWF; Status: Chronic (5) Hypocalcemia Assessment & Plan: CKD mineral bone disorder; likely with secondary hyperparathyroidism of CKD ( awaiting PTH level); vit D 25-OH level low; -start ergocalciferol 50,000 u weekly and calcitriol 0.25 mcg qMWF; Status: Acute (6) Hyponatremia Status: Acute
[2017-12-31 06:18] LABS: HEMOGLOBIN 7.8 g/dL (12.0-18.0); MEAN CELL VOLUME 88.1 fl (80.0-94.0); MEAN CORPUSCULAR HEMOGLOBIN 29.4 pg (27.0-31.0); MEAN CORPUSCULAR HGB CONC 33.4 g/dL (33.0-37.0); RBC 2.65 Mil/uL (4.40-5.90); RED CELL DISTRIBUTION WIDTH 14.7 % (11.5-14.5); WHITE BLOOD COUNT 6.6 K/uL (4.8-10.8)
[2017-12-31] MEDS: Insulin Regular 100 units/ml SC SCH ×4 (06:42→22:35)
[2017-12-31] MEDS: Pantoprazole 40 mg EC Tab PO SCH (08:36)
[2017-12-31] MEDS ORDERED: EPOETIN ALFA 10,000 UNIT/ML ML SC SCH (09:00)
[2017-12-31] MEDS ORDERED: Epoetin Alfa 20000 UNIT/ML Inj SC SCH (09:00)
--- NOTE | 2017-12-31 12:20 | CP.PCM.PN ---
Subjective - Date & Time of Evaluation Date of Evaluation: 12/31/17 Time of Evaluation: 11:00 - Subjective Subjective: Pt denies any KONG no CP no SOB no abd pain mild pedal edema Objective - Vital Signs/Intake and Output Vital Signs (last 24 hours): Temp Pulse Resp BP Pulse Ox 98.6 F 65 19 152/82 H 97 12/31/17 07:49 12/31/17 11:56 12/31/17 07:49 12/31/17 11:56 12/31/17 07:49 - Medications Medications: Current Medications Atorvastatin Calcium (Lipitor) 40 mg PO DAILY [facility] Last Admin: 12/31/17 08:35 Dose: 40 mg Epoetin Bahman (Procrit) 10,000 unit SC MWF [facility] Last Admin: 12/31/17 09:49 Dose: 10,000 unit Heparin Sodium (Porcine) (Heparin) 5,000 units SC Q8 [facility] PRN Reason: Protocol Stop: 01/02/18 12:00 Hydralazine HCl (Apresoline) 25 mg PO TID [facility] Last Admin: 12/31/17 08:35 Dose: 25 mg Iron Sucrose 100 mg/ Sodium (Chloride) 105 mls @ 105 mls/hr IVPB DAILY [facility] Stop: 01/02/18 09:59 Last Admin: 12/31/17 09:49 Dose: 105 mls/hr Insulin Human Regular (Humulin R) 0 units SC ACHS [facility] PRN Reason: Protocol Last Admin: 12/31/17 11:56 Dose: Not Given Labetalol HCl (Trandate) 200 mg PO Q8H [facility] Last Admin: 12/31/17 05:52 Dose: 200 mg Pantoprazole Sodium (Protonix Ec Tab) 40 mg PO DAILY [facility] Last Admin: 12/31/17 08:36 Dose: 40 mg - Labs Labs: 12/31/17 05:50 12/31/17 05:50 PT 11.2 Seconds (9.8-13.1) 12/29/17 20:30 INR 1.0 12/29/17 20:30 APTT 35.8 Seconds (25.6-37.1) 12/29/17 20:30 - Constitutional Appears: No Acute Distress - Head Exam Head Exam: ATRAUMATIC, NORMAL INSPECTION, NORMOCEPHALIC - Eye Exam Eye Exam: EOMI, Normal appearance Pupil Exam: NORMAL ACCOMODATION - ENT Exam ENT Exam: Mucous Membranes Moist, Normal External Ear Exam - Neck Exam Neck Exam: Full ROM. absent: Meningismus - Respiratory Exam Respiratory Exam: NORMAL BREATHING PATTERN. absent: Respiratory Distress - Cardiovascular Exam Cardiovascular Exam: REGULAR RHYTHM, +S1, +S2 - GI/Abdominal Exam GI & Abdominal Exam: Soft, Normal Bowel Sounds. absent: Tenderness - Extremities Exam Extremities Exam: Full ROM, Normal Capillary Refill. absent: Calf Tenderness - Back Exam Back Exam: absent: CVA tenderness (L), CVA tenderness (R) - Neurological Exam Neurological Exam: Alert, Awake, CN II-XII Intact, Oriented x3 Neuro motor strength exam: Left Upper Extremity: 5, Right Upper Extremity: 5, Left Lower Extremity: 5, Right Lower Extremity: 5 - Psychiatric Exam Psychiatric exam: Normal Affect, Normal Mood - Skin Skin Exam: Dry, Normal Color, Warm Additional comments: bilateral lower extremity dry hyperpigmented rash Assessment and Plan - Assessment and Plan (Free Text) Assessment: 52 years old male with hx of DM II, HTN, Chronic Kidney failure, Psoriasis follows up at [facility] in [place]. Comes with 3 days of low blood glucose diarrhea , vomiting and one day of feeling weak . EMS found patient in the bathroom feeling very weak and not himself. His blood Glucose was 40mg/dl. After one Ampule of 50% Dextrose the patient's symptoms improved. 1. DM type II with Hypoglycemia - Hold Glipizide - Insulin sliding scale according to Accuchecck ACHS - HbA1c= 5.9 2. AMS secondary to Metabolic encephalopathy with Hypoglycemia, resolved 3. Acute REnal failure on CKD stage IV - Consulted Nephrology Dr Jarquin - IV fluids - Renal Sonogram: diffuse hyperechogenicity, no hydronephrosis - Plan for renal biopsy Wednesday- unable to do today bec IR wanted pt off ASA x 5 days -Hold ASA - Pt's Crea was 2.8 in May 2017 , went up to 4.6 in August , at present Crea =7.[address] Jarquin - he rec to keep pt in the hospital, pt will likely need Hemodialysis because of worsening renal failure ( pt's renal function did not improve depsite IVF hydration) 4. Anemia of Chronic Kidney disease - 5. HTN - Hold Lisinopril - Hold amlodipine which could be causing leg edema -cont Labetalol and Hydralazine #. DVT Prophylaxis with Heparin #. Stress ulcer prophylaxis with Pantoprazole #. Code Status: full
[2017-12-31 15:12] LABS: PROTEINASE-3 <1.0 AI (<1.0)
[2017-12-31 16:06] LABS: FERRITIN 45.7 ng/Ml (17.9-464)
[2017-12-31] MEDS: Ergocalciferol 50,000 Intl Units Cap PO SCH (17:40)
--- NOTE | 2017-12-31 23:51 | CP.PCM.PN ---
Subjective - Date & Time of Evaluation Date of Evaluation: 12/31/17 Time of Evaluation: 13:00 - Subjective Subjective: 52 yo M w/ htn, dm, admitted with progressively worsening renal insufficiency, nephrotic syndrome; Patient with good appetite, no nausea/vomiting or dyspnea; urinating well; Objective - Vital Signs/Intake and Output Vital Signs (last 24 hours): Temp Pulse Resp BP Pulse Ox 97.9 F 66 20 154/86 H 99 12/31/17 16:23 12/31/17 17:39 12/31/17 16:23 12/31/17 17:39 12/31/17 16:23 - Medications Medications: Current Medications Atorvastatin Calcium (Lipitor) 40 mg PO DAILY [facility] Last Admin: 12/31/17 08:35 Dose: 40 mg Calcitriol (Rocaltrol) 0.25 mcg PO MWF [facility] Last Admin: 12/31/17 17:39 Dose: 0.25 mcg Epoetin Bahman (Procrit) 10,000 unit SC MWF [facility] Last Admin: 12/31/17 09:49 Dose: 10,000 unit Ergocalciferol (Drisdol 50,000 Intl Units Cap) 1 cap PO Q7D [facility] Last Admin: 12/31/17 17:40 Dose: 1 cap Heparin Sodium (Porcine) (Heparin) 5,000 units SC Q8 [facility] PRN Reason: Protocol Stop: 01/02/18 12:00 Last Admin: 12/31/17 17:40 Dose: 5,000 units Hydralazine HCl (Apresoline) 25 mg PO TID [facility] Last Admin: 12/31/17 17:39 Dose: 25 mg Iron Sucrose 100 mg/ Sodium (Chloride) 105 mls @ 105 mls/hr IVPB DAILY [facility] Stop: 01/02/18 09:59 Last Admin: 12/31/17 09:49 Dose: 105 mls/hr Insulin Human Regular (Humulin R) 0 units SC ACHS [facility] PRN Reason: Protocol Last Admin: 12/31/17 22:35 Dose: Not Given Labetalol HCl (Trandate) 200 mg PO Q8H [facility] Last Admin: 12/31/17 22:34 Dose: 200 mg Pantoprazole Sodium (Protonix Ec Tab) 40 mg PO DAILY [facility] Last Admin: 12/31/17 08:36 Dose: 40 mg - Labs Labs: 12/31/17 05:50 12/31/17 05:50 PT 11.2 Seconds (9.8-13.1) 12/29/17 20:30 INR 1.0 12/29/17 20:30 APTT 35.8 Seconds (25.6-37.1) 12/29/17 20:30 - Constitutional Appears: Non-toxic, No Acute Distress - Eye Exam Eye Exam: Normal appearance. absent: Scleral icterus - ENT Exam ENT Exam: Mucous Membranes Moist - Respiratory Exam Respiratory Exam: Clear to Ausculation Bilateral. absent: Respiratory Distress - Cardiovascular Exam Cardiovascular Exam: RRR, +S1, +S2 - GI/Abdominal Exam GI & Abdominal Exam: Soft. absent: Distended, Tenderness - Extremities Exam Additional comments: moderate b/l lower leg edema; - Neurological Exam Neurological Exam: Alert, Awake - Psychiatric Exam Psychiatric exam: Normal Affect, Normal Mood - Skin Skin Exam: Warm. absent: Cyanosis Assessment and Plan (1) Acute renal failure Assessment & Plan: Worsening renal insufficiency with serum creatinine still rising although slowly ; patient with nephrotic syndrome, likely due to DM but still need to rule out other treatable causes of renal insufficiency; currently awaiting renal biopsy; IR deferring procedure till Wednesday to avoid bleeding risk as patient was on aspirin; Otherwise, no overt uremic signs/symptoms, no gross electrolyte abnormalities or volume overload that would prompt us to initiate HD urgently; nevertheless, patient's GFR is extremely low and the safest course of action is to initiate HD during this admission and discharge patient with outpatient HD center setup; discharging patient now with outpatient f/u puts him at high risk for decompensation and needing HD emergently; -Awaiting 24 hr urine for protein, CrCl; -Awaiting renal biopsy; will have IR place tunneled HD catheter at that time to initiate HD; -Vein mapping done, will refer to surgery for AVF placement; -Avoid nephrotoxic agents (NSAIDS, etc); Status: Acute (2) Nephrotic syndrome Assessment & Plan: Likely due to DM; looking for another treatable cause with renal biopsy; has severe hypoalbuminemia with lower ext edema and will benefit from being initiated on dialysis; -avoiding diuretics for now as it will worsen renal function; use cautiously if needed; -no role for ARB/CHITRA inhibitor at this late stage of renal failure; Status: Chronic (3) HTN (hypertension) Assessment & Plan: BP better controlled; continue current meds; Status: Acute (4) Anemia Assessment & Plan: Hgb continues to drop, secondary to renal failure; started on EPO, agree with IV iron started by primary team; should consider transfusing prbc before renal biopsy if any more significant hgb drop; -DDAVP to be given just before renal biopsy (to help reduce platelet dysfunction ); Status: Chronic (5) Hypocalcemia Assessment & Plan: CKD mineral bone disorder; PTH elevated, low vit D 25-OH level; started on ergocalciferol and calcitriol; Status: Acute (6) Hyponatremia Status: Acute
[2018-01-01] MEDS: Insulin Regular 100 units/ml SC SCH ×4 (06:59→21:49)
[2018-01-01] MEDS: Pantoprazole 40 mg EC Tab PO SCH (09:14)
[2018-01-01 12:08] LABS: HEMOGLOBIN 8.6 g/dL (12.0-18.0); MEAN CELL VOLUME 88.4 fl (80.0-94.0); MEAN CORPUSCULAR HEMOGLOBIN 30.3 pg (27.0-31.0); MEAN CORPUSCULAR HGB CONC 34.3 g/dL (33.0-37.0); RBC 2.84 Mil/uL (4.40-5.90); RED CELL DISTRIBUTION WIDTH 14.9 % (11.5-14.5); WHITE BLOOD COUNT 6.6 K/uL (4.8-10.8)
[2018-01-01 12:48] LABS: CALCIUM 7.5 mg/dL (8.4-10.2)
--- NOTE | 2018-01-01 13:25 | CP.PCM.PN ---
Subjective - Date & Time of Evaluation Date of Evaluation: 01/01/18 Time of Evaluation: 12:00 - Subjective Subjective: Pt is afebrile denies abd pain no flank pain no CP no SOB Crea now 8.2 Objective - Vital Signs/Intake and Output Vital Signs (last 24 hours): Temp Pulse Resp BP Pulse Ox 98.1 F 65 19 156/88 H 98 01/01/18 07:48 01/01/18 09:13 01/01/18 07:48 01/01/18 09:13 01/01/18 07:48 Intake and Output: 01/01/18 01/01/18 06:59 18:59 Intake Total 150 Output Total 300 Balance -150 - Medications Medications: Current Medications Atorvastatin Calcium (Lipitor) 40 mg PO DAILY [facility] Last Admin: 01/01/18 09:14 Dose: 40 mg Calcitriol (Rocaltrol) 0.25 mcg PO MWF [facility] Last Admin: 12/31/17 17:39 Dose: 0.25 mcg Epoetin Bahman (Procrit) 10,000 unit SC F [facility] Last Admin: 12/31/17 09:49 Dose: 10,000 unit Ergocalciferol (Drisdol 50,000 Intl Units Cap) 1 cap PO Q7D [facility] Last Admin: 12/31/17 17:40 Dose: 1 cap Heparin Sodium (Porcine) (Heparin) 5,000 units SC Q8 [facility] PRN Reason: Protocol Stop: 01/02/18 12:00 Last Admin: 01/01/18 09:14 Dose: 5,000 units Hydralazine HCl (Apresoline) 25 mg PO TID [facility] Last Admin: 01/01/18 09:13 Dose: 25 mg Iron Sucrose 100 mg/ Sodium (Chloride) 105 mls @ 105 mls/hr IVPB DAILY [facility] Stop: 01/02/18 09:59 Last Admin: 01/01/18 12:30 Dose: 105 mls/hr Insulin Human Regular (Humulin R) 0 units SC ACHS [facility] PRN Reason: Protocol Last Admin: 01/01/18 12:29 Dose: 1 u Labetalol HCl (Trandate) 200 mg PO Q8H [facility] Last Admin: 01/01/18 06:09 Dose: 200 mg Pantoprazole Sodium (Protonix Ec Tab) 40 mg PO DAILY [facility] Last Admin: 01/01/18 09:14 Dose: 40 mg - Labs Labs: 01/01/18 11:33 01/01/18 11:33 PT 11.2 Seconds (9.8-13.1) 12/29/17 20:30 INR 1.0 12/29/17 20:30 APTT 35.8 Seconds (25.6-37.1) 12/29/17 20:30 - Constitutional Appears: No Acute Distress - Head Exam Head Exam: ATRAUMATIC, NORMAL INSPECTION, NORMOCEPHALIC - Eye Exam Eye Exam: EOMI, Normal appearance Pupil Exam: NORMAL ACCOMODATION - ENT Exam ENT Exam: Mucous Membranes Moist, Normal External Ear Exam - Neck Exam Neck Exam: Full ROM. absent: Meningismus - Respiratory Exam Respiratory Exam: NORMAL BREATHING PATTERN. absent: Respiratory Distress - Cardiovascular Exam Cardiovascular Exam: REGULAR RHYTHM, +S1, +S2 - GI/Abdominal Exam GI & Abdominal Exam: Soft, Normal Bowel Sounds. absent: Tenderness - Extremities Exam Extremities Exam: Full ROM, Normal Capillary Refill. absent: Calf Tenderness - Back Exam Back Exam: absent: CVA tenderness (L), CVA tenderness (R) - Neurological Exam Neurological Exam: Alert, Awake, CN II-XII Intact, Oriented x3 Neuro motor strength exam: Left Upper Extremity: 5, Right Upper Extremity: 5, Left Lower Extremity: 5, Right Lower Extremity: 5 - Psychiatric Exam Psychiatric exam: Normal Affect, Normal Mood - Skin Skin Exam: Dry, Normal Color, Warm Additional comments: bilateral lower extremity dry hyperpigmented rash Assessment and Plan - Assessment and Plan (Free Text) Assessment: 52 years old male with hx of DM II, HTN, Chronic Kidney failure, Psoriasis follows up at [facility] in [place]. Comes with 3 days of low blood glucose diarrhea , vomiting and one day of feeling weak . EMS found patient in the bathroom feeling very weak and not himself. His blood Glucose was 40mg/dl. After one Ampule of 50% Dextrose the patient's symptoms improved. 1. DM type II with Hypoglycemia - Hold Glipizide - Insulin sliding scale according to Accuchecck ACHS - HbA1c= 5.9 2. AMS secondary to Metabolic encephalopathy with Hypoglycemia, resolved 3. Acute REnal failure on CKD stage IV, worsening renal function - Consulted Nephrology Dr Jarquin - IV fluids given however Crea persistently worseing - Renal Sonogram: diffuse hyperechogenicity, no hydronephrosis - Plan for renal biopsy Wednesday- unable to do today bec IR wanted pt off ASA x 5 days -Hold ASA - Pt's Crea was 2.8 in May 2017 , went up to 4.6 in August , at present Crea =[address] Jarquin - he rec to keep pt in the hospital, pt will likely need Hemodialysis because of worsening renal failure ( pt's renal function did not improve depsite IVF hydration) 4. Anemia of Chronic Kidney disease - 5. HTN - d/c Lisinopril due to worsening kidney fxn and d/c amlodipine which could be causing leg edema -cont Labetalol and Hydralazine #. DVT Prophylaxis with Heparin #. Stress ulcer prophylaxis with Pantoprazole #. Code Status: full
[2018-01-01 14:39] LABS: URINE CREATININE 39.7 mg/dL
[2018-01-01] MEDS ORDERED: FLUOCINONIDE 0.05% TOP SCH (17:45)
--- NOTE | 2018-01-01 22:51 | CP.PCM.PN ---
Subjective - Date & Time of Evaluation Date of Evaluation: 01/01/18 Time of Evaluation: 18:00 - Subjective Subjective: 52 yo M w/ pmh of htn, dm, advanced CKD, admitted with hypoglycemia, worsening renal insufficiency; Reports feeling well; tolerating diet; no nausea/vomiting or sob; Objective - Vital Signs/Intake and Output Vital Signs (last 24 hours): Temp Pulse Resp BP Pulse Ox 98.2 F 69 18 164/93 H 99 01/01/18 16:12 01/01/18 17:50 01/01/18 16:12 01/01/18 17:50 01/01/18 16:12 Intake and Output: 01/01/18 01/02/18 18:59 06:59 Intake Total 150 Output Total 300 Balance -150 - Medications Medications: Current Medications Acetaminophen (Tylenol 325mg Tab) 650 mg PO Q6 PRN PRN Reason: Pain, Mild (1-3) Last Admin: 01/01/18 15:45 Dose: 650 mg Atorvastatin Calcium (Lipitor) 40 mg PO DAILY [facility] Last Admin: 01/01/18 09:14 Dose: 40 mg Calcitriol (Rocaltrol) 0.25 mcg PO MWF [facility] Last Admin: 12/31/17 17:39 Dose: 0.25 mcg Epoetin Bahman (Procrit) 10,000 unit SC F [facility] Last Admin: 12/31/17 09:49 Dose: 10,000 unit Ergocalciferol (Drisdol 50,000 Intl Units Cap) 1 cap PO Q7D [facility] Last Admin: 12/31/17 17:40 Dose: 1 cap Fluocinonide (Lidex 0.05% Cream) 1 applic TOP BID [facility] Heparin Sodium (Porcine) (Heparin) 5,000 units SC Q8 [facility] PRN Reason: Protocol Stop: 01/02/18 12:00 Last Admin: 01/01/18 17:50 Dose: 5,000 units Hydralazine HCl (Apresoline) 25 mg PO TID [facility] Last Admin: 01/01/18 17:50 Dose: 25 mg Iron Sucrose 100 mg/ Sodium (Chloride) 105 mls @ 105 mls/hr IVPB DAILY [facility] Stop: 01/02/18 09:59 Last Admin: 01/01/18 12:30 Dose: 105 mls/hr Insulin Human Regular (Humulin R) 0 units SC ACHS [facility] PRN Reason: Protocol Last Admin: 01/01/18 21:49 Dose: Not Given Labetalol HCl (Trandate) 200 mg PO Q8H [facility] Last Admin: 01/01/18 21:48 Dose: 200 mg Pantoprazole Sodium (Protonix Ec Tab) 40 mg PO DAILY [facility] Last Admin: 01/01/18 09:14 Dose: 40 mg - Labs Labs: 01/01/18 11:33 01/01/18 11:33 PT 11.2 Seconds (9.8-13.1) 12/29/17 20:30 INR 1.0 12/29/17 20:30 APTT 35.8 Seconds (25.6-37.1) 12/29/17 20:30 - Constitutional Appears: Non-toxic, No Acute Distress - Eye Exam Eye Exam: Normal appearance - Respiratory Exam Respiratory Exam: Clear to Ausculation Bilateral. absent: Respiratory Distress - Cardiovascular Exam Cardiovascular Exam: RRR, +S1, +S2. absent: Gallop, Rubs - GI/Abdominal Exam GI & Abdominal Exam: Soft. absent: Distended, Tenderness - Extremities Exam Additional comments: moderate b/l lower leg edema; - Neurological Exam Neurological Exam: Alert, Awake Additional comments: no asterixis; - Psychiatric Exam Psychiatric exam: Normal Affect, Normal Mood. absent: Agitated - Skin Skin Exam: Warm. absent: Cyanosis Assessment and Plan (1) Acute renal failure Assessment & Plan: Serum creatinine continues to rise slowly; JOSHUA on CKD, vs progression of CKD to end stage; CrCl of 9 ml/min correlates with eGFR; is at level of initiating dialysis despite lack of uremic signs/symptoms/gross electrolyte abnormalities; patient can decompensate very quickly and require emergent dialysis which we would like to avoid; again discussed at length today with patient/family who is agreeable to start HD; -NPO past MN on Wednesday for renal biopsy and tunneled HD catheter placement on Wednesday; -Avoid nephrotoxic agents; Status: Acute (2) Nephrotic syndrome Assessment & Plan: Awaiting 24 hr urine for protein quantification; biopsy will show etiology though treatment seems doubtful other than starting HD; Status: Chronic (3) HTN (hypertension) Assessment & Plan: BP elevated after getting dose of EPO; currently on hydralazine and labetalol; will add small dose of diuretic with lasix 20 mg IVP daily; Status: Acute (4) Anemia Assessment & Plan: Hgb now stable; started on IV iron and EPO, continue; Status: Chronic (5) Hypocalcemia Assessment & Plan: CKD mineral bone disorder; continue calcitriol and ergocalciferol; Status: Acute (6) Hyponatremia Status: Resolved
[2018-01-02 07:48] LABS: HEMOGLOBIN 8.1 g/dL (12.0-18.0); INR 1.1; MEAN CELL VOLUME 88.2 fl (80.0-94.0); MEAN CORPUSCULAR HEMOGLOBIN 29.7 pg (27.0-31.0); MEAN CORPUSCULAR HGB CONC 33.6 g/dL (33.0-37.0); PROTHROMBIN TIME 12.2 Seconds (9.8-13.1); RBC 2.72 Mil/uL (4.40-5.90); RED CELL DISTRIBUTION WIDTH 15.1 % (11.5-14.5); WHITE BLOOD COUNT 7.2 K/uL (4.8-10.8)
[2018-01-02 07:50] LABS: PARTIAL THROMBOPLASTIN TIME 47.4 Seconds (25.6-37.1)
[2018-01-02 08:14] LABS: CALCIUM 7.6 mg/dL (8.4-10.2)
[2018-01-02] MEDS: Insulin Regular 100 units/ml SC SCH ×4 (09:13→22:50)
[2018-01-02] MEDS: Pantoprazole 40 mg EC Tab PO SCH (09:14)
--- NOTE | 2018-01-02 11:12 | CP.PCM.PN ---
Subjective - Date & Time of Evaluation Date of Evaluation: 01/02/18 Time of Evaluation: 10:00 - Subjective Subjective: Patient is afebrile, denies fever, chills. Denies flank pain, sob, chest pain. Comfortable and sitting up in bed eating at time of exam. No new complaints. Understands he is for tunneled catheter placement and renal biopsy in AM. Renal function continuing to worsen. Objective - Vital Signs/Intake and Output Vital Signs (last 24 hours): Temp Pulse Resp BP Pulse Ox 98.0 F 79 19 143/81 97 01/02/18 07:45 01/02/18 10:57 01/02/18 10:57 01/02/18 10:57 01/02/18 10:57 - Medications Medications: Current Medications Acetaminophen (Tylenol 325mg Tab) 650 mg PO Q6 PRN PRN Reason: Pain, Mild (1-3) Last Admin: 01/01/18 15:45 Dose: 650 mg Amlodipine Besylate (Norvasc) 10 mg PO DAILY [facility] Last Admin: 01/02/18 09:27 Dose: 10 mg Atorvastatin Calcium (Lipitor) 40 mg PO DAILY [facility] Last Admin: 01/02/18 09:14 Dose: 40 mg Calcitriol (Rocaltrol) 0.25 mcg PO MWF [facility] Last Admin: 12/31/17 17:39 Dose: 0.25 mcg Epoetin Bahman (Procrit) 10,000 unit SC MWF [facility] Last Admin: 12/31/17 09:49 Dose: 10,000 unit Ergocalciferol (Drisdol 50,000 Intl Units Cap) 1 cap PO Q7D [facility] Last Admin: 12/31/17 17:40 Dose: 1 cap Fluocinonide (Lidex 0.05% Cream) 1 applic TOP BID [facility] Last Admin: 01/02/18 09:23 Dose: 1 applic Furosemide (Lasix) 20 mg IVP DAILY [facility] Last Admin: 01/02/18 09:14 Dose: 20 mg Heparin Sodium (Porcine) (Heparin) 5,000 units SC Q8 [facility] PRN Reason: Protocol Stop: 01/02/18 12:00 Last Admin: 01/02/18 09:14 Dose: 5,000 units Hydralazine HCl (Apresoline) 25 mg PO TID [facility] Last Admin: 08/05/18 09:13 Dose: 25 mg Insulin Human Regular (Humulin R) 0 units SC [facility] PRN Reason: Protocol Last Admin: 01/02/18 09:13 Dose: Not Given Labetalol HCl (Trandate) 200 mg PO Q8H [facility] Last Admin: 01/02/18 06:05 Dose: 200 mg Pantoprazole Sodium (Protonix Ec Tab) 40 mg PO DAILY [facility] Last Admin: 01/02/18 09:14 Dose: 40 mg - Labs Labs: 01/02/18 05:30 01/02/18 05:30 PT 12.2 Seconds (9.8-13.1) 01/02/18 05:30 INR 1.1 01/02/18 05:30 APTT 47.4 Seconds (25.6-37.1) H 01/02/18 05:30 - Additional Findings Additional findings: Physical exam: Constitutional- cooperative, awake, alert Head- NCAT, PERRL Eye- PERRL, EOMI ENT- normal exam, MMM. Neck- normal inspection, supple, no JVD Respiratory- CTAB, no wheezes rales rhonchi Cardiovascular- RRR, +S1, +S2 no MRG GI/Abdominal- normal bowel sounds, soft, no mass, no hsm Skin- warm, dry. Bilateral lower extremity hyperpigmented rash Extremities Exam- normal capillary refill, normal inspection Neurological Exam- alert, awake, oriented Psych- normal mood, normal affect Assessment and Plan - Assessment and Plan (Free Text) Plan: Assessment: 52 years old male with hx of DM II, HTN, Chronic Kidney failure, Psoriasis follows up at [facility] [place] in [place]. Comes with 3 days of low blood glucose diarrhea , vomiting and one day of feeling weak . EMS found patient in the bathroom feeling very weak and not himself. His blood Glucose was 40mg/dl. After one Ampule of 50% Dextrose the patient's symptoms improved. 1. DM type II with Hypoglycemia - Hold Glipizide - Insulin sliding scale according to Accuchecck ACHS - HbA1c= 5.9 2. AMS secondary to Metabolic encephalopathy with Hypoglycemia, resolved 3. Acute Renal failure on CKD stage IV, worsening renal function most likely due to DM but need to rule other treatable causes, nephrotic syndrome - Consulted Nephrology Dr Jarquin - IV fluids given however Crea persistently worseing - Renal Sonogram: diffuse hyperechogenicity, no hydronephrosis - Plan for renal biopsy Wednesday- unable to do today bec IR wanted pt off ASA x 5 days -Hold ASA - Pt's Crea was 2.8 in May 2017 , went up to 4.6 in August , at present Crea =[address] Jarquin - he rec to keep pt in the hospital, pt will likely need Hemodialysis because of worsening renal failure ( pt's renal function did not improve depsite IVF hydration) Cr clearance 9.0 renal biopsy 01/03 Tunneled catheter placement 01/03 GFR 7 today, Cr increased to 8.4 Check uric acid in AM 4. Anemia of Chronic Kidney disease 8.1 - stable - no need for transfusion at this time 5. HTN - d/c Lisinopril due to worsening kidney fxn and d/c amlodipine which could be causing leg edema -cont Labetalol and Hydralazine #. DVT Prophylaxis with Heparin #. Stress ulcer prophylaxis with Pantoprazole #. Code Status: full
[2018-01-02 20:05] LABS: ANCA SCREEN NEGATIVE (NEGATIVE)
--- NOTE | 2018-01-02 22:28 | CP.PCM.PN ---
Subjective - Date & Time of Evaluation Date of Evaluation: 01/02/18 Time of Evaluation: 18:00 - Subjective Subjective: Patient reports feeling well; no sob, nausea/vomiting; tolerating diet; Objective - Vital Signs/Intake and Output Vital Signs (last 24 hours): Temp Pulse Resp BP Pulse Ox 98.3 F 70 18 158/79 H 98 01/02/18 16:36 01/02/18 16:50 01/02/18 16:36 01/02/18 16:50 01/02/18 16:36 - Medications Medications: Current Medications Acetaminophen (Tylenol 325mg Tab) 650 mg PO Q6 PRN PRN Reason: Pain, Mild (1-3) Last Admin: 01/01/18 15:45 Dose: 650 mg Amlodipine Besylate (Norvasc) 10 mg PO DAILY [facility] Last Admin: 01/02/18 09:27 Dose: 10 mg Atorvastatin Calcium (Lipitor) 40 mg PO DAILY [facility] Last Admin: 01/02/18 09:14 Dose: 40 mg Calcitriol (Rocaltrol) 0.25 mcg PO MWF [facility] Last Admin: 12/31/17 17:39 Dose: 0.25 mcg Epoetin Bahman (Procrit) 10,000 unit SC MWF [facility] Last Admin: 12/31/17 09:49 Dose: 10,000 unit Ergocalciferol (Drisdol 50,000 Intl Units Cap) 1 cap PO Q7D [facility] Last Admin: 12/31/17 17:40 Dose: 1 cap Fluocinonide (Lidex 0.05% Cream) 1 applic TOP BID [facility] Last Admin: 01/02/18 16:50 Dose: 1 applic Furosemide (Lasix) 20 mg IVP DAILY [facility] Last Admin: 01/02/18 09:14 Dose: 20 mg Hydralazine HCl (Apresoline) 25 mg PO TID [facility] Last Admin: 01/02/18 16:50 Dose: 25 mg Insulin Human Regular (Humulin R) 0 units SC ACHS [facility] PRN Reason: Protocol Last Admin: 01/02/18 16:49 Dose: Not Given Labetalol HCl (Trandate) 200 mg PO Q8H [facility] Last Admin: 01/02/18 21:55 Dose: 200 mg Pantoprazole Sodium (Protonix Ec Tab) 40 mg PO DAILY [facility] Last Admin: 01/02/18 09:14 Dose: 40 mg - Labs Labs: 01/02/18 05:30 01/02/18 05:30 PT 12.2 Seconds (9.8-13.1) 01/02/18 05:30 INR 1.1 01/02/18 05:30 APTT 47.4 Seconds (25.6-37.1) H 01/02/18 05:30 - Constitutional Appears: Non-toxic, No Acute Distress - Eye Exam Eye Exam: Normal appearance. absent: Scleral icterus - ENT Exam ENT Exam: Mucous Membranes Moist - Respiratory Exam Respiratory Exam: Clear to Ausculation Bilateral. absent: Respiratory Distress - Cardiovascular Exam Cardiovascular Exam: RRR, +S1, +S2 - GI/Abdominal Exam GI & Abdominal Exam: Soft. absent: Distended, Tenderness - Exam Exam: absent: Bladder Distension - Extremities Exam Additional comments: moderate b/l leg edema; - Neurological Exam Neurological Exam: Alert, Awake - Psychiatric Exam Psychiatric exam: Normal Mood. absent: Agitated - Skin Skin Exam: Warm. absent: Cyanosis Assessment and Plan (1) Acute renal failure Assessment & Plan: JOSHUA on CKD vs CKD progression; renal function continues to worsen; no overt uremic signs/symptoms, however, should start HD during this admission; -NPO past MN for renal biopsy and tunneled HD catheter placement; -avoid nephrotoxic agents; -patient to discuss with case management regarding outpatient HD center preference (needs to be setup for safe discharge); Status: Acute (2) Nephrotic syndrome Assessment & Plan: Still awaiting repeat 24 hr urine and renal biopsy; cannot give CHITRA inhibitor at this late stage of CKD; Status: Chronic (3) HTN (hypertension) Assessment & Plan: BP still elevated; started on lasix 20 mg IV daily; adding amlodipine 10 mg daily; continue hydralazine and labetalol; Status: Acute (4) Anemia Assessment & Plan: Hgb below goal (10-11 g); continue EPO; Status: Chronic (5) Hypocalcemia Assessment & Plan: Stable; continue calcitriol and ergocalciferol; Status: Acute (6) Hyponatremia Status: Resolved
[2018-01-03 06:17] LABS: HEMOGLOBIN 7.8 g/dL (12.0-18.0); MEAN CORPUSCULAR HEMOGLOBIN 29.8 pg (27.0-31.0); MEAN CORPUSCULAR HGB CONC 33.8 g/dL (33.0-37.0); RBC 2.61 Mil/uL (4.40-5.90); RED CELL DISTRIBUTION WIDTH 15.1 % (11.5-14.5); WHITE BLOOD COUNT 7.6 K/uL (4.8-10.8)
[2018-01-03 06:47] LABS: CALCIUM 7.4 mg/dL (8.4-10.2); URIC ACID 8.6 mg/Dl (3.5-8.5)
[2018-01-03] MEDS: Insulin Regular 100 units/ml SC SCH ×4 (06:48→22:27)
[2018-01-03] MEDS ORDERED: Desmopressin 4 mcg/ml Inj (10 ml) IV ONE (07:15)
[2018-01-03] MEDS: Pantoprazole 40 mg EC Tab PO SCH (10:00)
[2018-01-03] MEDS: EPOETIN ALFA 10,000 UNIT/ML ML SC SCH (10:13)
--- NOTE | 2018-01-03 11:33 | CP.PCM.PN ---
Subjective - Date & Time of Evaluation Date of Evaluation: 01/03/18 Time of Evaluation: 11:00 - Subjective Subjective: Pt seen and examined Family at bedside discussed treatment plan Pt is scheduled to have Renal Biopsy done today Also will got for Tunneled HD catheter placement Discussed with Dr Loya - plan to start Dialysis today - will transfer to Telemetry ( new HD pt) Objective - Vital Signs/Intake and Output Vital Signs (last 24 hours): Temp Pulse Resp BP Pulse Ox 98.5 F 62 20 144/81 97 01/03/18 09:00 01/03/18 10:13 01/03/18 09:00 01/03/18 10:13 01/03/18 09:00 - Medications Medications: Current Medications Acetaminophen (Tylenol 325mg Tab) 650 mg PO Q6 PRN PRN Reason: Pain, Mild (1-3) Last Admin: 01/01/18 15:45 Dose: 650 mg Amlodipine Besylate (Norvasc) 10 mg PO DAILY [facility] Last Admin: 01/03/18 10:13 Dose: 10 mg Atorvastatin Calcium (Lipitor) 40 mg PO DAILY [facility] Last Admin: 01/03/18 10:00 Dose: Not Given Calcitriol (Rocaltrol) 0.25 mcg PO MWF [facility] Last Admin: 01/03/18 10:00 Dose: Not Given Epoetin Bahman (Procrit) 10,000 unit SC MWF [facility] Last Admin: 01/03/18 10:13 Dose: 10,000 unit Ergocalciferol (Drisdol 50,000 Intl Units Cap) 1 cap PO Q7D [facility] Last Admin: 12/31/17 17:40 Dose: 1 cap Fluocinonide (Lidex 0.05% Cream) 1 applic TOP BID [facility] Last Admin: 01/03/18 10:05 Dose: 1 applic Furosemide (Lasix) 20 mg IVP DAILY [facility] Last Admin: 01/03/18 10:04 Dose: 20 mg Hydralazine HCl (Apresoline) 25 mg PO TID [facility] Last Admin: 01/03/18 10:03 Dose: 25 mg Insulin Human Regular (Humulin R) 0 units SC ACHS [facility] PRN Reason: Protocol Last Admin: 01/03/18 06:48 Dose: Not Given Labetalol HCl (Trandate) 200 mg PO Q8H [facility] Last Admin: 01/03/18 06:56 Dose: 200 mg Pantoprazole Sodium (Protonix Ec Tab) 40 mg PO DAILY [facility] Last Admin: 01/03/18 10:00 Dose: Not Given - Labs Labs: 01/03/18 05:55 01/03/18 05:55 PT 12.2 Seconds (9.8-13.1) 01/02/18 05:30 INR 1.1 01/02/18 05:30 APTT 47.4 Seconds (25.6-37.1) H 01/02/18 05:30 - Constitutional Appears: No Acute Distress - Head Exam Head Exam: ATRAUMATIC, NORMAL INSPECTION, NORMOCEPHALIC - Eye Exam Eye Exam: EOMI, Normal appearance Pupil Exam: NORMAL ACCOMODATION - ENT Exam ENT Exam: Mucous Membranes Moist, Normal External Ear Exam - Neck Exam Neck Exam: Full ROM. absent: Meningismus - Respiratory Exam Respiratory Exam: NORMAL BREATHING PATTERN. absent: Respiratory Distress - Cardiovascular Exam Cardiovascular Exam: REGULAR RHYTHM, +S1, +S2 - GI/Abdominal Exam GI & Abdominal Exam: Soft, Normal Bowel Sounds. absent: Tenderness - Extremities Exam Extremities Exam: Full ROM, Normal Capillary Refill. absent: Calf Tenderness - Back Exam Back Exam: absent: CVA tenderness (L), CVA tenderness (R) - Neurological Exam Neurological Exam: Alert, Awake, CN II-XII Intact, Oriented x3 Neuro motor strength exam: Left Upper Extremity: 5, Right Upper Extremity: 5, Left Lower Extremity: 5, Right Lower Extremity: 5 - Psychiatric Exam Psychiatric exam: Normal Affect, Normal Mood - Skin Skin Exam: Dry, Normal Color, Warm Additional comments: bilateral lower extremity dry hyperpigmented rash Assessment and Plan - Assessment and Plan (Free Text) Assessment: 52 years old male with hx of DM II, HTN, Chronic Kidney failure, Psoriasis follows up at [facility] in [place]. Comes with 3 days of low blood glucose diarrhea , vomiting and one day of feeling weak . EMS found patient in the bathroom feeling very weak and not himself. His blood Glucose was 40mg/dl. After one Ampule of 50% Dextrose the patient's symptoms improved. 1. DM type II with Hypoglycemia - Hold Glipizide - Insulin sliding scale according to Accuchecck ACHS - HbA1c= 5.9 - glucose controlled 2. AMS secondary to Metabolic encephalopathy with Hypoglycemia, resolved 3. Acute REnal failure on CKD stage IV, worsening renal function - Consulted Nephrology Dr Jarquin - IV fluids given however Crea persistently worsening - Renal Sonogram: diffuse hyperechogenicity, no hydronephrosis - Plan for renal biopsy today -Hold ASA - Pt's Crea was 2.8 in May 2017 , went up to 4.6 in August , at present Crea =[address] Jarquin - he rec to keep pt in the hospital, pt will start Hemodialysis because of worsening renal failure ( pt's renal function did not improve despite IVF hydration) 4. Anemia of Chronic Kidney disease will cont to monitor pt is stable - 5. HTN - d/c Lisinopril due to worsening kidney fxn and d/c amlodipine which could be causing leg edema -cont Labetalol and Hydralazine #. DVT Prophylaxis with Heparin #. Stress ulcer prophylaxis with Pantoprazole #. Code Status: full
[2018-01-03] MEDS ORDERED: Lidocaine Hydrochloride 5 ML INJ ONE ×2 (11:39→11:41)
[2018-01-03] MEDS ORDERED: Absorbable Gelatin Sponge Size 12-7 ONE ×2 (11:41→11:59)
[2018-01-03] MEDS ORDERED: Midazolam 2 MG/2 ML VIAL ONE (11:46)
[2018-01-03] MEDS ORDERED: Propofol 10 mg/ml Inj (20 ML) ONE (11:47)
[2018-01-03] MEDS ORDERED: Lidocaine Hydrochloride 10 ML INJ ONE (12:03)
--- NOTE | 2018-01-03 12:20 | PCM.SURG1 ---
Surgeon's Initial Post Op Note - Surgeon's Notes Surgeon: Clemente Dutta MD Special Equipment Technician: NONE Type of Anesthesia: IV Sedation Pre-Operative Diagnosis: Renal failure Operative Findings: US showed slightly echogenic left kidney. US showed patent right IJV. Post-Operative Diagnosis: Renal failure Operation Performed: US guided left renal biopsy. Three 18-g core specimen removed from lower pole. Placement of a tunneled right IJV HD catheter. Specimen/Specimens Removed: 18 g core x 3 left kidney. Estimated Blood Loss: EBL {In ML}: 3 Blood Products Given: N/A Drains Used: No Drains Post-Op Condition: Fair Date of Surgery/Procedure: 01/03/18 Time of Surgery/Procedure: 12:15
--- NOTE | 2018-01-03 14:31 | US ---
Date of service: 12/31/2017 PROCEDURE: Upper Extremity Venous Duplex Exam HISTORY: vein mapping for AVF creation PRIORS: None. TECHNIQUE: Bilateral upper extremity, internal jugular, subclavian, axillary, brachial, ulnar, radial, basilic and upper cephalic veins were evaluated. Flow was assessed with color Doppler, compressibility, assessment of phasic flow and augmentation response. Report prepared by manager cardiovascular. FINDINGS: RIGHT: 1. Internal Jugular Vein: Compressibility - Fully compressible: Thrombus - None : Flow - Phasic 2. Subclavian Vein:Compressibility - Fully compressible: Thrombus - None : Flow - Phasic 3. Axillary Vein: Compressibility - Fully compressible: Thrombus - None 4. Brachial Vein: Compressibility - Fully compressible: Thrombus - None 5. Ulnar Vein:Compressibility - Fully compressible: Thrombus - None 6. Radial Vein:Compressibility - Fully compressible: Thrombus - None 7. Cephalic Vein: Compressibility - Fully compressible: thrombus - None 7.1. : Proximal Diameter: 0.35cm. Mid Diameter:0.29cm. Distal Diameter: cm 8. Basilic Vein:Compressibility - Fully compressible: thrombus - None 8.1. : Proximal Diameter: 0.52cm. Mid Diameter:0.54cm. Distal Diameter: 0.50cm. LEFT: 1. Internal Jugular Vein: Compressibility - Fully compressible: Thrombus - None : Flow - Phasic 2. Subclavian Vein:Compressibility - Fully compressible: Thrombus - None : Flow - Phasic 3. Axillary Vein: Compressibility - Fully compressible: Thrombus - None 4. Brachial Vein: Compressibility - Fully compressible: Thrombus - None 5. Ulnar Vein:Compressibility - Fully compressible: Thrombus - None 6. Radial Vein:Compressibility - Fully compressible: Thrombus - None 7. Cephalic Vein: Compressibility - Fully compressible: thrombus - None 7.1. Proximal Diameter: 0.36cm. Mid Diameter:0.36cm. Distal Diameter: 0.38cm 8. Basilic Vein:Compressibility - Fully compressible: thrombus - None 8.1. Proximal Diameter: 0.53cm. Mid Diameter:0.58cm. Distal Diameter: 0.63cm. OTHER FINDINGS: Right: None. Left: None. IMPRESSION: Right: Diameter measurements of the right cephalic vein is measured between 0.36 cm and 0.38 cm and basilic vein is measured between 0.50 cm and 0.54 cm. Left: Diameter measurements of the left cephalic vein is measured between 0.36 cm and 0.38 cm and basilic vein is measured between 0.53cm and 0.63cm.
[2018-01-03 17:09] LABS: ALBUMIN (PEP) 1.9 g/dL (3.8-4.8); ALPHA-1-GLOBULIN (PEP) 0.3 g/dL (0.2-0.3)
[2018-01-03 18:47] LABS: BASO % 0.5 % (0.0-2.0); EOS # 0.2 K/uL (0.0-0.7); EOS % 2.8 % (0.0-4.0); HEMOGLOBIN 7.4 g/dL (12.0-18.0); LYMPH # 1.3 K/uL (1.0-4.3); LYMPH % 16.5 % (20.0-40.0); MEAN CELL VOLUME 88.7 fl (80.0-94.0); MEAN CORPUSCULAR HEMOGLOBIN 29.9 pg (27.0-31.0); MEAN CORPUSCULAR HGB CONC 33.8 g/dL (33.0-37.0); MONO # 0.8 K/uL (0.0-0.8); MONO % 10.8 % (0.0-10.0); NEUT # 5.4 K/uL (1.8-7.0); NEUT % 69.4 % (50.0-75.0); NRBC % 0.1 % (0.0-0.0); RBC 2.48 Mil/uL (4.40-5.90); RED CELL DISTRIBUTION WIDTH 15.2 % (11.5-14.5); WHITE BLOOD COUNT 7.7 K/uL (4.8-10.8)
--- NOTE | 2018-01-03 23:41 | CP.PCM.PN ---
Subjective - Date & Time of Evaluation Date of Evaluation: 01/03/18 Time of Evaluation: 13:00 - Subjective Subjective: Seen before and after 1st HD session; tolerated it well; denies any sob, nausea ; tolerating diet; Objective - Vital Signs/Intake and Output Vital Signs (last 24 hours): Temp Pulse Resp BP Pulse Ox 98 F 85 18 146/80 96 01/03/18 21:00 01/03/18 21:00 01/03/18 21:00 01/03/18 21:00 01/03/18 21:00 - Medications Medications: Current Medications Acetaminophen (Tylenol 325mg Tab) 650 mg PO Q6 PRN PRN Reason: Pain, Mild (1-3) Last Admin: 01/01/18 15:45 Dose: 650 mg Amlodipine Besylate (Norvasc) 10 mg PO DAILY [facility] Last Admin: 01/03/18 10:13 Dose: 10 mg Atorvastatin Calcium (Lipitor) 40 mg PO DAILY [facility] Last Admin: 01/03/18 10:00 Dose: Not Given Calcitriol (Rocaltrol) 0.25 mcg PO MWF [facility] Last Admin: 01/03/18 10:00 Dose: Not Given Epoetin Bahman (Procrit) 10,000 unit SC MWF [facility] Last Admin: 01/03/18 10:13 Dose: 10,000 unit Ergocalciferol (Drisdol 50,000 Intl Units Cap) 1 cap PO Q7D [facility] Last Admin: 12/31/17 17:40 Dose: 1 cap Fluocinonide (Lidex 0.05% Cream) 1 applic TOP BID [facility] Last Admin: 01/03/18 18:23 Dose: Not Given Furosemide (Lasix) 20 mg IVP DAILY [facility] Last Admin: 01/03/18 10:04 Dose: 20 mg Hydralazine HCl (Apresoline) 25 mg PO TID [facility] Last Admin: 01/03/18 18:22 Dose: Not Given Insulin Human Regular (Humulin R) 0 units SC ACHS [facility] PRN Reason: Protocol Last Admin: 01/03/18 22:27 Dose: Not Given Labetalol HCl (Trandate) 200 mg PO Q8H [facility] Last Admin: 01/03/18 22:27 Dose: 200 mg Pantoprazole Sodium (Protonix Ec Tab) 40 mg PO DAILY [facility] Last Admin: 01/03/18 10:00 Dose: Not Given - Labs Labs: 01/03/18 18:30 01/03/18 05:55 PT 12.2 Seconds (9.8-13.1) 01/02/18 05:30 INR 1.1 01/02/18 05:30 APTT 47.4 Seconds (25.6-37.1) H 01/02/18 05:30 - Constitutional Appears: Well Assessment and Plan (1) Acute renal failure Assessment & Plan: Worsening renal insufficiency; initiated on HD today with slow blood flow to prevent dialysis dysequilibrium; next HD session for tomorrow, then full HD on Wednesday; need to setup outpatient HD unit before d/c; will speak to vascular surgery to see if patient can get AVF creation while still here (vein mapping done); -continue to avoid nephrotoxic agents; Status: Acute (2) Nephrotic syndrome Status: Chronic (3) HTN (hypertension) Status: Acute (4) Anemia Status: Chronic (5) Hypocalcemia Status: Acute (6) Hyponatremia Status: Resolved
[2018-01-04 05:52] LABS: HEMOGLOBIN 7.7 g/dL (12.0-18.0); MEAN CELL VOLUME 88.9 fl (80.0-94.0); MEAN CORPUSCULAR HGB CONC 33.8 g/dL (33.0-37.0); RBC 2.55 Mil/uL (4.40-5.90); RED CELL DISTRIBUTION WIDTH 15.1 % (11.5-14.5)
[2018-01-04 06:29] LABS: CALCIUM 7.2 mg/dL (8.4-10.2)
[2018-01-04] MEDS: Insulin Regular 100 units/ml SC SCH ×4 (07:50→22:13)
[2018-01-04] MEDS: Pantoprazole 40 mg EC Tab PO SCH (09:59)
--- NOTE | 2018-01-04 10:44 | VASCULAR ---
PROCEDURE: Date of procedure: 01/03/2018 Procedure: 1. Placement of right IJ tunneled hemodialysis catheter, CPT 76020 Medications: 1 percent lidocaine, IV sedation and physiologic monitoring performed by the anesthesiologist. EBL: 5 cm Radiation:4.21 mGy Fluoro time: 23.6 seconds Images: 2 HISTORY: Renal failure requiring hemodialysis TECHNIQUE: Following informed consent and procedure time-out, the patient was placed supine on the interventional table and the skin was marked . A limited ultrasound patient's right neck showed a patent compressible right internal jugular vein. Under direct ultrasound guidance, the right internal jugular vein was accessed with micropuncture technique and a guidewire was advanced under fluoroscopic guidance into the superior vena cava. An image documenting ultrasound guidance for vascular access was permanently saved. A 19 centimeter cuff to tip hemodialysis catheter was then tunneled under the skin and hold the venotomy site. The venotomy was then serially dilated to accommodate the peel-away sheath. The hemodialysis catheter was then advanced through a peel-away sheath. The catheter is positioned with tip in the superior vena cava confirm with fluoroscopic image. The catheter was tested and has adequate blood flow for hemodialysis. The catheter was flushed and locked with heparin per specified amount. The catheter secured to the skin with a 0 silk suture. IMPRESSION: Placement of right tunneled hemodialysis 19 cm cuff-to-tip catheter The catheter tip is confirmed with spot radiograph and is in the superior vena cava. The catheter is functional and ready for use.
--- NOTE | 2018-01-04 13:02 | CP.PCM.PN ---
Subjective - Date & Time of Evaluation Date of Evaluation: 01/04/18 Time of Evaluation: 12:30 - Subjective Subjective: Pt had his first Hemodialysis yesterday Pt feels betetr after HD no fever denies CP no SOB no abd pain Objective - Vital Signs/Intake and Output Vital Signs (last 24 hours): Temp Pulse Resp BP Pulse Ox 98 F 66 18 144/77 98 01/04/18 12:16 01/04/18 12:51 01/04/18 12:16 01/04/18 12:51 01/04/18 12:16 - Medications Medications: Current Medications Acetaminophen (Tylenol 325mg Tab) 650 mg PO Q6 PRN PRN Reason: Pain, Mild (1-3) Last Admin: 01/01/18 15:45 Dose: 650 mg Amlodipine Besylate (Norvasc) 10 mg PO DAILY [facility] Last Admin: 01/04/18 09:58 Dose: 10 mg Atorvastatin Calcium (Lipitor) 40 mg PO DAILY [facility] Last Admin: 01/04/18 09:58 Dose: 40 mg Calcitriol (Rocaltrol) 0.25 mcg PO MWF [facility] Last Admin: 01/03/18 10:00 Dose: Not Given Epoetin Bahman (Procrit) 10,000 unit SC MWF [facility] Last Admin: 01/03/18 10:13 Dose: 10,000 unit Ergocalciferol (Drisdol 50,000 Intl Units Cap) 1 cap PO Q7D [facility] Last Admin: 12/31/17 17:40 Dose: 1 cap Fluocinonide (Lidex 0.05% Cream) 1 applic TOP BID [facility] Last Admin: 01/04/18 09:20 Dose: 1 applic Furosemide (Lasix) 20 mg IVP DAILY [facility] Last Admin: 01/04/18 09:56 Dose: 20 mg Hydralazine HCl (Apresoline) 25 mg PO TID [facility] Last Admin: 01/04/18 12:51 Dose: 25 mg Iron Sucrose 100 mg/ Sodium (Chloride) 105 mls @ 105 mls/hr IVPB DAILY [facility] Stop: 01/08/18 09:59 Last Admin: 01/04/18 11:49 Dose: 105 mls/hr Insulin Human Regular (Humulin R) 0 units SC ACHS [facility] PRN Reason: Protocol Last Admin: 01/04/18 12:52 Dose: 1 u Labetalol HCl (Trandate) 200 mg PO Q8H [facility] Last Admin: 01/04/18 12:59 Dose: 200 mg Pantoprazole Sodium (Protonix Ec Tab) 40 mg PO DAILY [facility] Last Admin: 01/04/18 09:59 Dose: 40 mg - Labs Labs: 01/04/18 04:20 01/04/18 04:20 PT 12.2 Seconds (9.8-13.1) 01/02/18 05:30 INR 1.1 01/02/18 05:30 APTT 47.4 Seconds (25.6-37.1) H 01/02/18 05:30 - Constitutional Appears: No Acute Distress - Head Exam Head Exam: ATRAUMATIC, NORMAL INSPECTION, NORMOCEPHALIC - Eye Exam Eye Exam: EOMI, Normal appearance Pupil Exam: NORMAL ACCOMMODATION - ENT Exam ENT Exam: Mucous Membranes Moist, Normal External Ear Exam - Neck Exam Neck Exam: Full ROM. absent: Meningismus - Respiratory Exam Respiratory Exam: NORMAL BREATHING PATTERN. absent: Respiratory Distress - Cardiovascular Exam Cardiovascular Exam: REGULAR RHYTHM, +S1, +S2 - GI/Abdominal Exam GI & Abdominal Exam: Soft, Normal Bowel Sounds. absent: Tenderness - Extremities Exam Extremities Exam: Full ROM, Normal Capillary Refill. absent: Calf Tenderness - Back Exam Back Exam: absent: CVA tenderness (L), CVA tenderness (R) - Neurological Exam Neurological Exam: Alert, Awake, CN II-XII Intact, Oriented x3 Neuro motor strength exam: Left Upper Extremity: 5, Right Upper Extremity: 5, Left Lower Extremity: 5, Right Lower Extremity: 5 - Psychiatric Exam Psychiatric exam: Normal Affect, Normal Mood - Skin Skin Exam: Dry, Normal Color, Warm Additional comments: bilateral lower extremity dry hyperpigmented rash Assessment and Plan - Assessment and Plan (Free Text) Assessment: 52 years old male with hx of DM II, HTN, Chronic Kidney failure, Psoriasis follows up at [facility], [place] in [place]. Comes with 3 days of low blood glucose diarrhea , vomiting and one day of feeling weak . EMS found patient in the bathroom feeling very weak and not himself. His blood Glucose was 40mg/dl. After one Ampule of 50% Dextrose the patient's symptoms improved. In the ED, Crea noted to be 7.0 1. DM type II with Hypoglycemia - Hold Glipizide - Insulin sliding scale according to Accuchecck ACHS - HbA1c= 5.9 - glucose controlled 2. AMS secondary to Metabolic encephalopathy with Hypoglycemia, resolved 3. Acute Renal failure on CKD stage IV, worsening renal function - Hemodialysis started - Consulted Nephrology Dr Jarquin - IV fluids given however Crea persistently worsening - Renal Sonogram: diffuse hyperechogenicity, no hydronephrosis -Renal Biopsy done - awaiting pathology - Pt's Crea was 2.8 in May 2017 , went up to 4.6 in August ( [facility], [place] med record) -SW consulted for Outpatient HD placement 4. Anemia of Chronic Kidney disease will cont to monitor pt is stable - Epogen and Venofer started 5. HTN - d/c Lisinopril due to worsening kidney fxn and d/c amlodipine which could be causing leg edema -cont Labetalol and Hydralazine - Pt also on Lasix #. DVT Prophylaxis with Heparin #. Stress ulcer prophylaxis with Pantoprazole
[2018-01-04 15:04] LABS: ALPHA-1 GLOBULIN 7.2 Relative %
[2018-01-04 17:29] LABS: HEPATITIS B SURFACE AG Negative (NEGATIVE)
[2018-01-04 17:34] LABS: HEPATITIS B CORE AB NEGATIVE (NEGATIVE)
--- NOTE | 2018-01-04 22:47 | CP.PCM.PN ---
Subjective - Date & Time of Evaluation Date of Evaluation: 01/04/18 Time of Evaluation: 18:30 - Subjective Subjective: Patient reports feeling well; denies dyspnea, nausea/vomiting; tolerating diet; tolerated 2nd HD session well today; Objective - Vital Signs/Intake and Output Vital Signs (last 24 hours): Temp Pulse Resp BP Pulse Ox 98.4 F 68 18 157/77 H 98 01/04/18 19:53 01/04/18 20:33 01/04/18 19:53 01/04/18 19:53 01/04/18 19:53 - Medications Medications: Current Medications Acetaminophen (Tylenol 325mg Tab) 650 mg PO Q6 PRN PRN Reason: Pain, Mild (1-3) Last Admin: 01/01/18 15:45 Dose: 650 mg Amlodipine Besylate (Norvasc) 10 mg PO DAILY [facility] Last Admin: 01/04/18 09:58 Dose: 10 mg Atorvastatin Calcium (Lipitor) 40 mg PO DAILY [facility] Last Admin: 01/04/18 09:58 Dose: 40 mg Calcitriol (Rocaltrol) 0.25 mcg PO MWF [facility] Last Admin: 01/03/18 10:00 Dose: Not Given Epoetin Bahman (Procrit) 10,000 unit SC MWF [facility] Last Admin: 01/03/18 10:13 Dose: 10,000 unit Ergocalciferol (Drisdol 50,000 Intl Units Cap) 1 cap PO Q7D [facility] Last Admin: 12/31/17 17:40 Dose: 1 cap Fluocinonide (Lidex 0.05% Cream) 1 applic TOP BID [facility] Last Admin: 01/04/18 17:17 Dose: 1 applic Furosemide (Lasix) 20 mg IVP DAILY [facility] Last Admin: 01/04/18 09:56 Dose: 20 mg Heparin Sodium (Porcine) (Heparin) 5,000 units SC Q12 [facility] PRN Reason: Protocol Last Admin: 01/04/18 21:15 Dose: 5,000 units Hydralazine HCl (Apresoline) 25 mg PO TID [facility] Last Admin: 01/04/18 19:01 Dose: 25 mg Iron Sucrose 100 mg/ Sodium (Chloride) 105 mls @ 105 mls/hr IVPB DAILY [facility] Stop: 01/08/18 09:59 Last Admin: 01/04/18 11:49 Dose: 105 mls/hr Insulin Human Regular (Humulin R) 0 units SC ACHS [facility] PRN Reason: Protocol Last Admin: 01/04/18 22:13 Dose: Not Given Labetalol HCl (Trandate) 200 mg PO Q8H [facility] Last Admin: 01/04/18 21:15 Dose: 200 mg Pantoprazole Sodium (Protonix Ec Tab) 40 mg PO DAILY [facility] Last Admin: 01/04/18 09:59 Dose: 40 mg - Labs Labs: 01/04/18 04:20 01/04/18 04:20 PT 12.2 Seconds (9.8-13.1) 01/02/18 05:30 INR 1.1 01/02/18 05:30 APTT 47.4 Seconds (25.6-37.1) H 01/02/18 05:30 - Constitutional Appears: Non-toxic, No Acute Distress - Eye Exam Eye Exam: Normal appearance - ENT Exam ENT Exam: Mucous Membranes Moist - Respiratory Exam Respiratory Exam: Clear to Ausculation Bilateral. absent: Respiratory Distress - Cardiovascular Exam Cardiovascular Exam: RRR, +S1, +S2 - GI/Abdominal Exam GI & Abdominal Exam: Soft. absent: Distended, Tenderness - Extremities Exam Additional comments: moderate b/l lower leg edema - Neurological Exam Neurological Exam: Alert, Awake - Psychiatric Exam Psychiatric exam: Normal Mood. absent: Agitated - Skin Skin Exam: Warm. absent: Cyanosis Assessment and Plan (1) Acute renal failure Assessment & Plan: JOSHUA v progression of CKD; awaiting renal biopsy results (done yesterday); initiated on HD yesterday, 2nd HD treatment today, 3rd for tomorrow will be using full speed blood flow to achieve adequate clearance and will aim for more ultrafiltration to control volume status; plans discussed again extensively today with patient/family (>15 minutes); -awaiting outpatient HD center setup -continue to avoid nephrotoxic meds -needs AVF creation but may have to be done as outpatient for logistical reasons ; Status: Acute (2) Nephrotic syndrome Assessment & Plan: 11 g proteinuria on 24 hr collection; f/u biopsy results to see if there's treatable cause; Status: Chronic (3) HTN (hypertension) Assessment & Plan: BP better controlled, should improve further as we remove more fluid on HD; continue current meds; Status: Acute (4) Anemia Assessment & Plan: Hgb well below goal but relatively stable, continue IV iron loading and EPO qMWF ; avoid transfusion in this possible future renal transplant candidate; Status: Chronic (5) Hypocalcemia Assessment & Plan: Secondary hyperparathryoidism of CKD; continue calcitriol 0.25 mcg qMWF and ergocalciferol 50,000 u weekly; Status: Acute (6) Hyponatremia Status: Resolved
[2018-01-05] MEDS: Insulin Regular 100 units/ml SC SCH ×4 (07:01→21:13)
[2018-01-05] MEDS: Pantoprazole 40 mg EC Tab PO SCH (08:31)
[2018-01-05] MEDS: EPOETIN ALFA 10,000 UNIT/ML ML SC SCH (08:32)
--- NOTE | 2018-01-05 14:22 | CP.PCM.PN ---
Subjective - Date & Time of Evaluation Date of Evaluation: 01/05/18 Time of Evaluation: 11:15 - Subjective Subjective: Pt is having HD today - 3 days in a row denies CP no SOB no abd pain Objective - Vital Signs/Intake and Output Vital Signs (last 24 hours): Temp Pulse Resp BP Pulse Ox 97.4 F L 67 19 157/83 H 97 01/05/18 08:05 01/05/18 08:05 01/05/18 08:05 01/05/18 08:05 01/05/18 08:05 - Medications Medications: Current Medications Acetaminophen (Tylenol 325mg Tab) 650 mg PO Q6 PRN PRN Reason: Pain, Mild (1-3) Last Admin: 01/01/18 15:45 Dose: 650 mg Amlodipine Besylate (Norvasc) 10 mg PO DAILY [facility] Last Admin: 01/05/18 08:31 Dose: Not Given Atorvastatin Calcium (Lipitor) 40 mg PO DAILY [facility] Last Admin: 01/05/18 08:31 Dose: 40 mg Calcitriol (Rocaltrol) 0.25 mcg PO MWF [facility] Last Admin: 01/05/18 08:32 Dose: 0.25 mcg Epoetin Bahman (Procrit) 10,000 unit SC MWF [facility] Last Admin: 01/05/18 08:32 Dose: 10,000 unit Ergocalciferol (Drisdol 50,000 Intl Units Cap) 1 cap PO Q7D [facility] Last Admin: 12/31/17 17:40 Dose: 1 cap Fluocinonide (Lidex 0.05% Cream) 1 applic TOP BID [facility] Last Admin: 01/04/18 17:17 Dose: 1 applic Furosemide (Lasix) 20 mg IVP DAILY [facility] Last Admin: 01/04/18 09:56 Dose: 20 mg Heparin Sodium (Porcine) (Heparin) 5,000 units SC Q12 [facility] PRN Reason: Protocol Last Admin: 01/05/18 08:29 Dose: 5,000 units Hydralazine HCl (Apresoline) 25 mg PO TID [facility] Last Admin: 01/05/18 13:41 Dose: Not Given Iron Sucrose 100 mg/ Sodium (Chloride) 105 mls @ 105 mls/hr IVPB DAILY [facility] Stop: 01/08/18 09:59 Last Admin: 01/04/18 11:49 Dose: 105 mls/hr Insulin Human Regular (Humulin R) 0 units SC ACHS [facility] PRN Reason: Protocol Last Admin: 01/05/18 11:19 Dose: Not Given Labetalol HCl (Trandate) 200 mg PO Q8H [facility] Last Admin: 01/05/18 05:35 Dose: 200 mg Pantoprazole Sodium (Protonix Ec Tab) 40 mg PO DAILY [facility] Last Admin: 01/05/18 08:31 Dose: 40 mg - Labs Labs: 01/04/18 04:20 01/04/18 04:20 PT 12.2 Seconds (9.8-13.1) 01/02/18 05:30 INR 1.1 01/02/18 05:30 APTT 47.4 Seconds (25.6-37.1) H 01/02/18 05:30 - Constitutional Appears: No Acute Distress - Head Exam Head Exam: ATRAUMATIC, NORMAL INSPECTION, NORMOCEPHALIC - Eye Exam Eye Exam: EOMI, Normal appearance Pupil Exam: NORMAL ACCOMMODATION - ENT Exam ENT Exam: Mucous Membranes Moist, Normal External Ear Exam - Neck Exam Neck Exam: Full ROM. absent: Meningismus - Respiratory Exam Respiratory Exam: NORMAL BREATHING PATTERN. absent: Respiratory Distress - Cardiovascular Exam Cardiovascular Exam: REGULAR RHYTHM, +S1, +S2 [address] - GI/Abdominal Exam GI & Abdominal Exam: Soft, Normal Bowel Sounds. absent: Tenderness - Extremities Exam Extremities Exam: Full ROM, Normal Capillary Refill. absent: Calf Tenderness - Back Exam Back Exam: absent: CVA tenderness (L), CVA tenderness (R) - Neurological Exam Neurological Exam: Alert, Awake, CN II-XII Intact, Oriented x3 Neuro motor strength exam: Left Upper Extremity: 5, Right Upper Extremity: 5, Left Lower Extremity: 5, Right Lower Extremity: 5 - Psychiatric Exam Psychiatric exam: Normal Affect, Normal Mood - Skin Skin Exam: Dry, Normal Color, Warm Additional comments: bilateral lower extremity dry hyperpigmented rash Assessment and Plan - Assessment and Plan (Free Text) Assessment: 52 years old male with hx of DM II, HTN, Chronic Kidney failure, Psoriasis follows up at [facility] in [place]. Comes with 3 days of low blood glucose diarrhea , vomiting and one day of feeling weak . EMS found patient in the bathroom feeling very weak and not himself. His blood Glucose was 40mg/dl. After one Ampule of 50% Dextrose the patient's symptoms improved. In the ED, Crea noted to be 7.0 . Nephrology consulted- rec HD and renal Biopsy. 1. DM type II with Hypoglycemia - Hold Glipizide - Insulin sliding scale according to Accuchecck ACHS - HbA1c= 5.9 - glucose controlled 2. AMS secondary to Metabolic encephalopathy with Hypoglycemia, resolved 3. Acute Renal failure on CKD stage IV, worsening renal function - Permacath placed -Hemodialysis started- - Consulted Nephrology Dr Jarquin - IV fluids given however Crea persistently worsening - Renal Sonogram: diffuse hyperechogenicity, no hydronephrosis -Renal Biopsy done - awaiting pathology - Pt's Crea was 2.8 in May 2017 , went up to 4.6 in August ( [facility] med record) -SW consulted for Outpatient HD placement 4. Anemia of Chronic Kidney disease will cont to monitor pt is stable - Epogen and Venofer started 5. HTN - d/c Lisinopril due to worsening kidney fxn and d/c amlodipine which could be causing leg edema -cont Labetalol and Hydralazine - Pt also on Lasix #. DVT Prophylaxis with Heparin
--- NOTE | 2018-01-05 23:31 | CP.PCM.PN ---
Subjective - Date & Time of Evaluation Date of Evaluation: 01/05/18 Time of Evaluation: 20:00 - Subjective Subjective: Patient reports feeling well; had 3rd HD treatment today; no dyspnea, nausea/ vomiting; tolerating diet; Objective - Vital Signs/Intake and Output Vital Signs (last 24 hours): Temp Pulse Resp BP Pulse Ox 98.8 F 74 18 139/71 96 01/05/18 16:35 01/05/18 21:20 01/05/18 16:35 01/05/18 21:20 01/05/18 16:35 - Medications Medications: Current Medications Acetaminophen (Tylenol 325mg Tab) 650 mg PO Q6 PRN PRN Reason: Pain, Mild (1-3) Last Admin: 01/01/18 15:45 Dose: 650 mg Amlodipine Besylate (Norvasc) 10 mg PO DAILY [facility] Last Admin: 01/05/18 08:31 Dose: Not Given Atorvastatin Calcium (Lipitor) 40 mg PO DAILY [facility] Last Admin: 01/05/18 08:31 Dose: 40 mg Calcitriol (Rocaltrol) 0.25 mcg PO MWF [facility] Last Admin: 01/05/18 08:32 Dose: 0.25 mcg Epoetin Bahman (Procrit) 10,000 unit SC MWF [facility] Last Admin: 01/05/18 08:32 Dose: 10,000 unit Ergocalciferol (Drisdol 50,000 Intl Units Cap) 1 cap PO Q7D [facility] Last Admin: 12/31/17 17:40 Dose: 1 cap Fluocinonide (Lidex 0.05% Cream) 1 applic TOP BID [facility] Last Admin: 01/05/18 16:58 Dose: 1 applic Furosemide (Lasix) 20 mg IVP DAILY [facility] Last Admin: 01/05/18 17:00 Dose: 20 mg Heparin Sodium (Porcine) (Heparin) 5,000 units SC Q12 [facility] PRN Reason: Protocol Last Admin: 01/05/18 21:13 Dose: 5,000 units Hydralazine HCl (Apresoline) 25 mg PO TID [facility] Last Admin: 01/05/18 17:00 Dose: 25 mg Iron Sucrose 100 mg/ Sodium (Chloride) 105 mls @ 105 mls/hr IVPB DAILY [facility] Stop: 01/08/18 09:59 Last Admin: 01/05/18 15:09 Dose: 105 mls/hr Insulin Human Regular (Humulin R) 0 units SC ACHS [facility] PRN Reason: Protocol Last Admin: 01/05/18 21:13 Dose: Not Given Labetalol HCl (Trandate) 200 mg PO Q8H [facility] Last Admin: 01/05/18 21:15 Dose: 200 mg - Labs Labs: 01/04/18 04:20 01/04/18 04:20 PT 12.2 Seconds (9.8-13.1) 01/02/18 05:30 INR 1.1 01/02/18 05:30 APTT 47.4 Seconds (25.6-37.1) H 01/02/18 05:30 - Constitutional Appears: Non-toxic, No Acute Distress - Eye Exam Eye Exam: Normal appearance - ENT Exam ENT Exam: Mucous Membranes Moist - Respiratory Exam Respiratory Exam: Clear to Ausculation Bilateral. absent: Respiratory Distress - Cardiovascular Exam Cardiovascular Exam: RRR, +S1, +S2 - GI/Abdominal Exam GI & Abdominal Exam: Soft. absent: Distended, Tenderness - Extremities Exam Additional comments: mild b/l lower leg edema; - Neurological Exam Neurological Exam: Alert, Awake - Psychiatric Exam Psychiatric exam: Normal Mood. absent: Agitated - Skin Skin Exam: Warm. absent: Cyanosis Assessment and Plan (1) ESRD on hemodialysis Assessment & Plan: Renal biopsy findings discussed with pathologist today; patient with severe chronic changes, fibrosis, and globally sclerotic glomeruli to the extent that deciphering the etiology of renal failure is no longer possible; discussed with patient and family at length (>15 minutes) that renal failure is not reversible ; discussed transplant options which will be limited by insurance/immigration status; -will deem patient as ESRD; -continue HD on MWF schedule; -awaiting outpatient HD unit setup Status: Acute (2) Acute renal failure Status: Inactive (3) Nephrotic syndrome Assessment & Plan: Massive proteinuria, should resolve over time now that patient is ESRD and will eventually lose his residual renal function; Status: Chronic (4) HTN (hypertension) Assessment & Plan: BP controlled, continue current meds; Status: Acute (5) Anemia Assessment & Plan: Hgb below goal; continue IV iron loading and EPO qMWF; Status: Chronic (6) Hypocalcemia Assessment & Plan: CKD mineral bone disorder; continue calcitriol and ergocalciferol; Status: Acute (7) Hyponatremia Status: Resolved
[2018-01-06 06:14] VITALS: BMI 28.9
[2018-01-06] MEDS: Insulin Regular 100 units/ml SC SCH ×4 (06:32→21:53)
[2018-01-06] MEDS ORDERED: Hydrogen Peroxide 3% Soln (480ml) TP ONE (11:47)
--- NOTE | 2018-01-06 13:00 | CP.PCM.PN ---
Subjective - Date & Time of Evaluation Date of Evaluation: 01/06/18 Time of Evaluation: 12:58 - Subjective Subjective: pt doing well this am no complaints tolerating HD well awaiting outpatient HD arrangements HD stable, NAD Objective - Vital Signs/Intake and Output Vital Signs (last 24 hours): Temp Pulse Resp BP Pulse Ox 98.0 F 64 19 157/86 H 98 01/06/18 09:07 01/06/18 09:56 01/06/18 09:07 01/06/18 09:56 01/06/18 09:07 Intake and Output: Vitals Reviewed GEN: WDWN, alert, cooperative HEENT: NCAT, PERRL, EOMI HEART: RRR, +S1S2, NO MRG LUNG: CTAB, NO WRR ABD: soft, NT, ND, No HSM, No masses EXT: normal pedal pulses, normal capillary refill NEURO: awake, alert, no focal deficits SKIN: warm, dry PSYCH: normal mood, normal affect - Medications Medications: Current Medications Acetaminophen (Tylenol 325mg Tab) 650 mg PO Q6 PRN PRN Reason: Pain, Mild (1-3) Last Admin: 01/01/18 15:45 Dose: 650 mg Amlodipine Besylate (Norvasc) 10 mg PO DAILY [facility] Last Admin: 01/06/18 09:56 Dose: 10 mg Atorvastatin Calcium (Lipitor) 40 mg PO DAILY [facility] Last Admin: 01/06/18 09:53 Dose: 40 mg Calcitriol (Rocaltrol) 0.25 mcg PO MWF [facility] Last Admin: 01/05/18 08:32 Dose: 0.25 mcg Epoetin Bahman (Procrit) 10,000 unit SC MWF [facility] Last Admin: 01/05/18 08:32 Dose: 10,000 unit Ergocalciferol (Drisdol 50,000 Intl Units Cap) 1 cap PO Q7D [facility] Last Admin: 12/31/17 17:40 Dose: 1 cap Fluocinonide (Lidex 0.05% Cream) 1 applic TOP BID [facility] Last Admin: 01/06/18 09:53 Dose: 1 applic Furosemide (Lasix) 20 mg IVP DAILY [facility] Last Admin: 01/06/18 09:52 Dose: 20 mg Heparin Sodium (Porcine) (Heparin) 5,000 units SC Q12 [facility] PRN Reason: Protocol Last Admin: 01/06/18 09:52 Dose: 5,000 units Hydralazine HCl (Apresoline) 25 mg PO TID [facility] Last Admin: 01/06/18 09:52 Dose: 25 mg Iron Sucrose 100 mg/ Sodium (Chloride) 105 mls @ 105 mls/hr IVPB DAILY [facility] Stop: 01/08/18 09:59 Last Admin: 01/06/18 11:39 Dose: 105 mls/hr Insulin Human Regular (Humulin R) 0 units SC ACHS [facility] PRN Reason: Protocol Last Admin: 01/06/18 06:32 Dose: Not Given Labetalol HCl (Trandate) 200 mg PO Q8H [facility] Last Admin: 01/06/18 09:54 Dose: 200 mg - Labs Labs: 01/04/18 04:20 01/04/18 04:20 PT 12.2 Seconds (9.8-13.1) 01/02/18 05:30 INR 1.1 01/02/18 05:30 APTT 47.4 Seconds (25.6-37.1) H 01/02/18 05:30 Assessment and Plan - Assessment and Plan (Free Text) Plan: 52 years old male with hx of DM II, HTN, Chronic Kidney failure, Psoriasis follows up at [facility] [place] in [place]. Comes with 3 days of low blood glucose diarrhea , vomiting and one day of feeling weak . EMS found patient in the bathroom feeling very weak and not himself. His blood Glucose was 40mg/dl. After one Ampule of 50% Dextrose the patient's symptoms improved. In the ED, Crea noted to be 7.0 . Nephrology consulted- rec HD, pt disease too progressed to determine etiology 1. DM type II with Hypoglycemia - Hold Glipizide - Insulin sliding scale according to Accuchecck ACHS - HbA1c= 5.9 - glucose controlled 2. AMS secondary to Metabolic encephalopathy with Hypoglycemia, resolved 3. Newly diagnosed, ESRD - Permacath placed -Hemodialysis started- - Consulted Nephrology Dr Jarquin - IV fluids given however Crea persistently worsening - Renal Sonogram: diffuse hyperechogenicity, no hydronephrosis -Renal Biopsy done - awaiting pathology - Pt's Crea was 2.8 in May 2017 , went up to 4.6 in August ( [facility] [place] med record) -SW consulted for Outpatient HD placement, FOR MWF? 4. Anemia of Chronic Kidney disease will cont to monitor pt is stable - Epogen and Venofer started 5. HTN - d/c Lisinopril due to worsening kidney fxn and d/c amlodipine which could be causing leg edema -cont Labetalol and Hydralazine - Pt also on Lasix #. DVT Prophylaxis with Heparin
[2018-01-07] MEDS: Insulin Regular 100 units/ml SC SCH ×4 (08:17→22:42)
--- NOTE | 2018-01-07 11:22 | CP.PCM.PN ---
Subjective - Date & Time of Evaluation Date of Evaluation: 01/07/18 Time of Evaluation: 11:00 - Subjective Subjective: Plan for HD today no KONG no CP no SOB no abd pain Objective - Vital Signs/Intake and Output Vital Signs (last 24 hours): Temp Pulse Resp BP Pulse Ox 98.2 F 66 19 157/85 H 95 01/07/18 08:24 01/07/18 08:24 01/07/18 08:24 01/07/18 08:24 01/07/18 08:24 - Medications Medications: Current Medications Acetaminophen (Tylenol 325mg Tab) 650 mg PO Q6 PRN PRN Reason: Pain, Mild (1-3) Last Admin: 01/01/18 15:45 Dose: 650 mg Amlodipine Besylate (Norvasc) 10 mg PO DAILY [facility] Last Admin: 01/06/18 09:56 Dose: 10 mg Atorvastatin Calcium (Lipitor) 40 mg PO DAILY [facility] Last Admin: 01/07/18 08:41 Dose: 40 mg Calcitriol (Rocaltrol) 0.25 mcg PO MWF [facility] Last Admin: 01/07/18 08:41 Dose: 0.25 mcg Epoetin Bahman (Procrit) 10,000 unit SC MWF [facility] Last Admin: 01/05/18 08:32 Dose: 10,000 unit Ergocalciferol (Drisdol 50,000 Intl Units Cap) 1 cap PO Q7D [facility] Last Admin: 12/31/17 17:40 Dose: 1 cap Fluocinonide (Lidex 0.05% Cream) 1 applic TOP BID [facility] Last Admin: 01/06/18 16:53 Dose: 1 applic Furosemide (Lasix) 20 mg IVP DAILY [facility] Last Admin: 01/06/18 09:52 Dose: 20 mg Heparin Sodium (Porcine) (Heparin) 5,000 units SC Q12 [facility] PRN Reason: Protocol Last Admin: 01/06/18 21:22 Dose: 5,000 units Hydralazine HCl (Apresoline) 25 mg PO TID [facility] Last Admin: 01/06/18 16:52 Dose: 25 mg Iron Sucrose 100 mg/ Sodium (Chloride) 105 mls @ 105 mls/hr IVPB DAILY [facility] Stop: 01/08/18 09:59 Last Admin: 01/06/18 11:39 Dose: 105 mls/hr Insulin Human Regular (Humulin R) 0 units SC ACHS [facility] PRN Reason: Protocol Last Admin: 01/06/18 21:53 Dose: Not Given Labetalol HCl (Trandate) 200 mg PO Q8H [facility] Last Admin: 01/07/18 06:16 Dose: 200 mg - Labs Labs: 01/04/18 04:20 01/07/18 06:30 PT 12.2 Seconds (9.8-13.1) 01/02/18 05:30 INR 1.1 01/02/18 05:30 APTT 47.4 Seconds (25.6-37.1) H 01/02/18 05:30 - Constitutional Appears: No Acute Distress - Head Exam Head Exam: ATRAUMATIC, NORMAL INSPECTION, NORMOCEPHALIC - Eye Exam Eye Exam: EOMI, Normal appearance Pupil Exam: NORMAL ACCOMMODATION - ENT Exam ENT Exam: Mucous Membranes Moist, Normal External Ear Exam - Neck Exam Neck Exam: Full ROM. absent: Meningismus - Respiratory Exam Respiratory Exam: NORMAL BREATHING PATTERN. absent: Respiratory Distress - Cardiovascular Exam Cardiovascular Exam: REGULAR RHYTHM, +S1, +S[address] - GI/Abdominal Exam GI & Abdominal Exam: Soft, Normal Bowel Sounds. absent: Tenderness - Extremities Exam Extremities Exam: Full ROM, Normal Capillary Refill. absent: Calf Tenderness - Back Exam Back Exam: absent: CVA tenderness (L), CVA tenderness (R) - Neurological Exam Neurological Exam: Alert, Awake, CN II-XII Intact, Oriented x3 Neuro motor strength exam: Left Upper Extremity: 5, Right Upper Extremity: 5, Left Lower Extremity: 5, Right Lower Extremity: 5 - Psychiatric Exam Psychiatric exam: Normal Affect, Normal Mood - Skin Skin Exam: Dry, Normal Color, Warm Additional comments: bilateral lower extremity dry hyperpigmented rash Assessment and Plan - Assessment and Plan (Free Text) Assessment: 52 years old male with hx of DM II, HTN, Chronic Kidney failure, Psoriasis follows up at [facility] in [place]. Comes with 3 days of low blood glucose diarrhea , vomiting and one day of feeling weak . EMS found patient in the bathroom feeling very weak and not himself. His blood Glucose was 40mg/dl. After one Ampule of 50% Dextrose the patient's symptoms improved. In the ED, Crea noted to be 7.0 . Nephrology consulted- rec HD and renal Biopsy. 1. DM type II with Hypoglycemia - Hold Glipizide - Insulin sliding scale according to Accuchecck ACHS - HbA1c= 5.9 - glucose controlled 2. AMS secondary to Metabolic encephalopathy with Hypoglycemia, resolved 3. Acute Renal failure on CKD stage IV, worsening renal function - now ESRD on HD - Permacath placed -Hemodialysis started- - Consulted Nephrology Dr Jarquin - IV fluids given however Crea persistently worsening - Renal Sonogram: diffuse hyperechogenicity, no hydronephrosis -Renal Biopsy done - awaiting pathology - Pt's Crea was 2.8 in May 2017 , went up to 4.6 in August ( [facility] med record) -SW consulted for Outpatient HD placement- - placement found however schedule is TThS- will d/c pt home after tomoorow HD - AV Fistula will be placed OUTPT 4. Anemia of Chronic Kidney disease will cont to monitor pt is stable - Epogen and Venofer started 5. HTN - d/c Lisinopril due to worsening kidney fxn and d/c amlodipine which could be causing leg edema -cont Labetalol and Hydralazine - Pt also on Lasix #. DVT Prophylaxis with Heparin
[2018-01-07 13:57] LABS: HEMOGLOBIN 8.8 g/dL (12.0-18.0); MEAN CELL VOLUME 89.7 fl (80.0-94.0); MEAN CORPUSCULAR HGB CONC 33.4 g/dL (33.0-37.0); RBC 2.93 Mil/uL (4.40-5.90); RED CELL DISTRIBUTION WIDTH 15.4 % (11.5-14.5); WHITE BLOOD COUNT 7.7 K/uL (4.8-10.8)
[2018-01-07] MEDS: Ergocalciferol 50,000 Intl Units Cap PO SCH (13:57)
[2018-01-07 14:15] LABS: CALCIUM 8.2 mg/dL (8.4-10.2)
[2018-01-07] MEDS: EPOETIN ALFA 10,000 UNIT/ML ML SC SCH (16:52)
--- NOTE | 2018-01-07 22:43 | CP.PCM.PN ---
Subjective - Date & Time of Evaluation Date of Evaluation: 01/07/18 Time of Evaluation: 16:00 - Subjective Subjective: Patient reports feeling well; no sob, nausea/vomiting; feels a little weak; Objective - Vital Signs/Intake and Output Vital Signs (last 24 hours): Temp Pulse Resp BP Pulse Ox 98.4 F 75 18 134/82 97 01/07/18 16:51 01/07/18 21:07 01/07/18 16:51 01/07/18 21:07 01/07/18 16:51 - Medications Medications: Current Medications Acetaminophen (Tylenol 325mg Tab) 650 mg PO Q6 PRN PRN Reason: Pain, Mild (1-3) Last Admin: 01/01/18 15:45 Dose: 650 mg Amlodipine Besylate (Norvasc) 10 mg PO DAILY [facility] Last Admin: 01/07/18 09:51 Dose: Not Given Atorvastatin Calcium (Lipitor) 40 mg PO DAILY [facility] Last Admin: 01/07/18 08:41 Dose: 40 mg Calcitriol (Rocaltrol) 0.25 mcg PO MWF [facility] Last Admin: 01/07/18 08:41 Dose: 0.25 mcg Carvedilol (Coreg) 6.25 mg PO Q12 [facility] Last Admin: 01/07/18 21:07 Dose: 6.25 mg Epoetin Bahman (Procrit) 10,000 unit SC MWF [facility] Last Admin: 01/07/18 16:52 Dose: 10,000 unit Ergocalciferol (Drisdol 50,000 Intl Units Cap) 1 cap PO Q7D [facility] Last Admin: 01/07/18 13:57 Dose: 1 cap Fluocinonide (Lidex 0.05% Cream) 1 applic TOP BID [facility] Last Admin: 01/07/18 16:55 Dose: 1 applic Furosemide (Lasix) 20 mg IVP DAILY [facility] Last Admin: 01/07/18 09:51 Dose: Not Given Heparin Sodium (Porcine) (Heparin) 5,000 units SC Q12 [facility] PRN Reason: Protocol Last Admin: 01/07/18 21:05 Dose: 5,000 units Hydralazine HCl (Apresoline) 25 mg PO TID [facility] Last Admin: 01/07/18 16:50 Dose: Not Given Iron Sucrose 100 mg/ Sodium (Chloride) 105 mls @ 105 mls/hr IVPB DAILY [facility] Stop: 01/08/18 09:59 Last Admin: 01/07/18 21:05 Dose: 105 mls/hr Insulin Human Regular (Humulin R) 0 units SC ACHS [facility] PRN Reason: Protocol Last Admin: 01/07/18 22:42 Dose: Not Given - Labs Labs: 01/07/18 13:30 01/07/18 13:30 PT 12.2 Seconds (9.8-13.1) 01/02/18 05:30 INR 1.1 01/02/18 05:30 APTT 47.4 Seconds (25.6-37.1) H 01/02/18 05:30 - Constitutional Appears: Non-toxic, No Acute Distress - Eye Exam Eye Exam: Normal appearance - Respiratory Exam Respiratory Exam: Clear to Ausculation Bilateral. absent: Respiratory Distress - Cardiovascular Exam Cardiovascular Exam: RRR, +S1, +S2. absent: Gallop, Rubs - GI/Abdominal Exam GI & Abdominal Exam: Soft. absent: Distended, Tenderness - Exam Exam: absent: Bladder Distension - Extremities Exam Additional comments: mild lower leg edema (much improved); - Neurological Exam Neurological Exam: Alert, Awake - Psychiatric Exam Psychiatric exam: Normal Mood. absent: Agitated - Skin Skin Exam: Warm. absent: Cyanosis Assessment and Plan (1) ESRD on hemodialysis Assessment & Plan: Initiated on HD during this admission, tolerated well, set for HD today; volume status improved on exam; stable electrolyte status; is set up for outpatient HD starting Wednesday; will give extra HD session tomorrow to put him on TTS schedule , then can d/c home; Status: Acute (2) Nephrotic syndrome Status: Chronic (3) HTN (hypertension) Assessment & Plan: BP elevated but hasn't gotten all his meds; should continue meds (especially amlodipine) even on HD days; Status: Acute (4) Anemia Assessment & Plan: Due to CKD, some component of iron deficiency; hgb improving, continue IV iron and EPO; Status: Chronic (5) Hypocalcemia Status: Acute (6) Hyponatremia Status: Resolved
[2018-01-08] MEDS: Insulin Regular 100 units/ml SC SCH ×2 (08:21→12:18)
--- NOTE | 2018-01-08 10:59 | CP.PCM.DIS ---
Provider - Provider Date of Admission: 12/29/17 04:25 Attending physician: Elton Abrams Consults: Nephrology : Dr Jarquin Time Spent in preparation of Discharge (in minutes): 40 Diagnosis - Discharge Diagnosis (1) ESRD on hemodialysis Status: Acute (2) HTN (hypertension) Status: Chronic (3) Hypocalcemia Status: Chronic (4) Anemia Status: Chronic Hospital Course - Lab Results Lab Results: Micro Results 12/29/17 07:00 Urine Urine Culture - Final No Growth (<1,000 CFU/ML) Most Recent Lab Values WBC 7.7 K/uL (4.8-10.8) 01/07/18 13:30 RBC 2.93 Mil/uL (4.40-5.90) L 01/07/18 13:30 Hgb 8.8 g/dL (12.0-18.0) L 01/07/18 13:30 Hct 26.3 % (35.0-51.0) L 01/07/18 13:30 MCV 89.7 fl (80.0-94.0) 01/07/18 13:30 MCH 30.0 pg (27.0-31.0) 01/07/18 13:30 MCHC 33.4 g/dL (33.0-37.0) 01/07/18 13:30 RDW 15.4 % (11.5-14.5) H 01/07/18 13:30 Plt Count 247 K/uL (130-400) 01/07/18 13:30 MPV 9.0 fl (7.2-11.7) 01/03/18 18:30 Neut % (Auto) 69.4 % (50.0-75.0) 01/03/18 18:30 Lymph % (Auto) 16.5 % (20.0-40.0) L 01/03/18 18:30 Bell % (Auto) 10.8 % (0.0-10.0) H 01/03/18 18:30 Eos % (Auto) 2.8 % (0.0-4.0) 01/03/18 18:30 Baso % (Auto) 0.5 % (0.0-2.0) 01/03/18 18:30 Neut # (Auto) 5.4 K/uL (1.8-7.0) 01/03/18 18:30 Lymph # (Auto) 1.3 K/uL (1.0-4.3) 01/03/18 18:30 Bell # (Auto) 0.8 K/uL (0.0-0.8) 01/03/18 18:30 Eos # (Auto) 0.2 K/uL (0.0-0.7) 01/03/18 18:30 Baso # (Auto) 0.0 K/uL (0.0-0.2) 01/03/18 18:30 PT 12.2 Seconds (9.8-13.1) 01/02/18 05:30 INR 1.1 01/02/18 05:30 APTT 47.4 Seconds (25.6-37.1) H 01/02/18 05:30 Sodium 136 mmol/l (132-148) 01/07/18 13:30 Potassium 4.3 MMOL/L (3.6-5.0) 01/07/18 13:30 Chloride 102 mmol/L (98-107) 01/07/18 13:30 Carbon Dioxide 25 mmol/L (22-30) 01/07/18 13:30 Anion Gap 13 (10-20) 01/07/18 13:30 BUN 38 mg/dl (9-20) H 01/07/18 13:30 Creatinine 6.5 mg/dl (0.8-1.5) H 01/07/18 13:30 Est GFR ( Amer) 11 01/07/18 13:30 Est GFR (Non-Af Amer) 9 01/07/18 13:30 POC Glucose (mg/dL) 127 mg/dL (65-110) H 01/07/18 16:20 Random Glucose 164 mg/dL (75-110) H 01/07/18 13:30 Hemoglobin A1c 5.9 % (4.2-6.5) 12/29/17 07:13 Uric Acid 8.6 mg/Dl (3.5-8.5) H 01/03/18 05:55 Calcium 8.2 mg/dL (8.4-10.2) L 01/07/18 13:30 Phosphorus 5.1 mg/dl (2.5-4.5) H 01/07/18 13:30 Magnesium 1.4 MG/DL (1.6-2.3) L 12/29/17 03:50 Iron 49 ug/dL (49-181) 12/29/17 10:05 TIBC 205 ug/dL (250-450) L 12/29/17 10:05 % Saturation 24 % (20-55) 12/29/17 10:05 Ferritin 45.7 ng/Ml (17.9-464) 12/31/17 05:50 Total Bilirubin 0.4 mg/dl (0.2-1.3) 01/07/18 13:30 Direct Bilirubin 0.2 mg/ml (0.0-0.4) 12/29/17 12:57 AST 30 U/L (17-59) 01/07/18 13:30 ALT 27 U/L (21-72) 01/07/18 13:30 Alkaline Phosphatase 104 U/L (38-126) 01/07/18 13:30 Total Protein 6.2 G/DL (6.3-8.2) L 01/07/18 13:30 Total Protein (PEP) 4.1 g/dL (6.1-8.1) L 12/29/17 20:30 Albumin 3.0 g/dL (3.5-5.0) L D 01/07/18 13:30 Albumin (PEP) 1.9 g/dL (3.8-4.8) L 12/29/17 20:30 Globulin 3.2 gm/dL (2.2-3.9) 01/07/18 13:30 Albumin/Globulin Ratio 1.0 (1.0-2.1) 01/07/18 13:30 Uukbx-1-Zgsorzmew 7.2 Relative % 12/31/17 15:19 Onajv-1-Hyfzscpij 10.9 Relative % 12/31/17 15:19 Beta Globulins 14.6 Relative % 12/31/17 15:19 Ntxt-8-Owsarddo 0.3 g/dL (0.4-0.6) L 12/29/17 20:30 Vhlp-9-Hprurwnp 0.4 g/dL (0.2-0.5) 12/29/17 20:30 Gamma Globulins 14.3 Relative % 12/31/17 15:19 Abnorm Protein Band 1 TEST NOT PERFORMED 12/29/17 20:30 Abnorm Protein Band 2 TEST NOT PERFORMED 12/29/17 20:30 Abnorm Protein Band 3 TEST NOT PERFORMED 12/29/17 20:30 25-OH Vitamin D Total < 12.8 NG/ML (30.0-100.0) L 12/30/17 06:42 PTH Intact Whole Molec 337 pg/mL (14-64) H 12/30/17 06:42 Urine Color Straw (YELLOW) 12/29/17 18:13 Urine Clarity Clear (Clear) 12/29/17 18:13 Urine pH 6.0 (5.0-8.0) 12/29/17 18:13 Ur Specific [place] 1.008 (1.003-1.030) 12/29/17 18:13 Urine Protein >=300 mg/dL (NEGATIVE) 12/29/17 18:13 Urine Glucose (UA) 150 mg/dL (Normal) 12/29/17 18:13 Urine Ketones Negative mg/dL (NEGATIVE) 12/29/17 18:13 Urine Blood Small (NEGATIVE) 12/29/17 18:13 Urine Nitrate Negative (NEGATIVE) 12/29/17 18:13 Urine Bilirubin Negative (NEGATIVE) 12/29/17 18:13 Urine Urobilinogen 0.2-1.0 mg/dL (0.2-1.0) 12/29/17 18:13 Ur Leukocyte Esterase Neg Melony/uL (Negative) 12/29/17 18:13 Urine RBC (Auto) 2 /hpf (0-3) 12/29/17 18:13 Urine Microscopic WBC 3 /hpf (0-5) 12/29/17 18:13 Urine Bacteria Rare (<OCC) 12/29/17 18:13 Ur Random Creatinine 35.0 mg/dL 12/29/17 18:13 U Random Total Protein 19515 mg/g creat (22-128) H 12/29/17 18:13 Ur Random Sodium 29 mmol/L 12/29/17 18:13 Urine Collection Time 24 HRS 12/31/17 21:32 Urine Total Volume 2850 mL 12/31/17 21:32 Urine Creatinine 0.49 g/L 12/31/17 15:19 Ur Creatinine 24 Hour 1.40 g/24 h (0.63-2.50) 12/31/17 15:19 Creatinine Clearance 9.0 mL/min (107-139) L 12/31/17 21:32 Urine Microalbumin 234.5 mg/dL 12/29/17 18:13 Microalb/Creat Ratio 5247 (<30) H 12/29/17 18:13 Ur Total Protein 24 Hr 07533 mg/24 h (<150) H 12/31/17 15:19 Protein/Creat Ratio 24h 8452 mg/g creat (</=84) H 12/31/17 15:19 Urine Total Protein 4150 mg/L (50-250) H 12/31/17 15:19 Urine Albumin (PEP) 53.0 Relative % 12/31/17 15:19 Ur Protein Fractions See note 12/31/17 15:19 Urine Opiates Screen Negative (NEGATIVE) 12/29/17 18:13 Urine Methadone Screen Negative (NEGATIVE) 12/29/17 18:13 Ur Barbiturates Screen Negative (NEGATIVE) 12/29/17 18:13 Ur Phencyclidine Scrn Negative (NEGATIVE) 12/29/17 18:13 Ur Amphetamines Screen Negative (NEGATIVE) 12/29/17 18:13 U Benzodiazepines Scrn Negative (NEGATIVE) 12/29/17 18:13 U Oth Cocaine Metabols Negative (NEGATIVE) 12/29/17 18:13 U Cannabinoids Screen Negative (NEGATIVE) 12/29/17 18:13 PRAVEENA & SPEP Interp See note 12/29/17 20:30 Serum Immunofixation Not detected (Not Detected) 12/29/17 20:30 CRISELDA Screen Negative (Negative) 12/29/17 20:30 CRISELDA Titer TEST NOT PERFORMED 12/29/17 20:30 CRISELDA Titer 2 TEST NOT PERFORMED 12/29/17 20:30 CRISELDA Pattern TEST NOT PERFORMED 12/29/17 20:30 CRISELDA Pattern 2 TEST NOT PERFORMED 12/29/17 20:30 ANCA Screen Negative (NEGATIVE) 12/29/17 20:30 c-ANCA Titer TNP 12/29/17 20:30 Proteinase 3 (PR3) <1.0 AI (<1.0) 12/29/17 20:30 p-ANCA Titer TNP 12/29/17 20:30 Atypical p-ANCA Titer TNP 12/29/17 20:30 Myeloperoxidase Ab <1.0 AI (<1.0) 12/29/17 20:30 Glomerular Base Mem IgG <1.0 AI (<1.0) 12/29/17 20:30 Complement C3 84.0 mg/dL (88.0-165.0) L 12/29/17 21:00 Complement C4 29.4 mg/dL (14.0-44.0) 12/29/17 21:00 RPR Nonreactive (NONREACTIVE) 12/29/17 20:30 Hep Bs Antigen Negative (NEGATIVE) 01/03/18 18:30 Hep Bs Antibody Negative (NEGATIVE) 01/03/18 18:30 Hep Bs Antibody, Quant <5 mIU/mL (>or=10) L 01/03/18 18:30 Hep B Core IgM Ab Negative (NEGATIVE) 01/03/18 18:30 Hepatitis C Antibody Negative (NEGATIVE) 12/29/17 20:30 HIV 1&2 Antibody Screen Negative (NEGATIVE) 12/29/17 20:30 Blood Type A POSITIVE 01/07/18 13:30 Blood Type Confirm A POSITIVE 12/31/17 08:37 Antibody Screen Negative 01/07/18 13:30 Crossmatch See Detail 01/07/18 13:30 BBK History Checked Patient has bt 01/07/18 13:30 - Hospital Course Hospital Course: 52 years old male with hx of DM II, HTN, Chronic Kidney failure, Psoriasis follows up at [facility] in [place]. Comes with 3 days of low blood glucose diarrhea , vomiting and one day of feeling weak . EMS found patient in the bathroom feeling very weak and not himself. His blood Glucose was 40mg/dl. After one Ampule of 50% Dextrose the patient's symptoms improved. In the ED, Crea noted to be 7.0 . Nephrology consulted- rec HD and renal Biopsy. 1. DM type II with Hypoglycemia - Held Glipizide - Insulin sliding scale according to Accuchecck ACHS - HbA1c= 5.9 - glucose controlled - DM diet 2. AMS secondary to Metabolic encephalopathy with Hypoglycemia, resolved 3. Acute Renal failure on CKD stage IV, worsening renal function - now ESRD on HD - Permacath placed -Hemodialysis started- - Consulted Nephrology Dr Jarquin - IV fluids given however Crea persistently worsening - Renal Sonogram: diffuse hyperechogenicity, no hydronephrosis -Renal Biopsy done - awaiting pathology - Pt's Crea was 2.8 in May 2017 , went up to 4.6 in August ( [facility] med record) -SW consulted for Outpatient HD placement- - schedule is TThS - AV Fistula will be placed OUTPT 4. Anemia of Chronic Kidney disease will cont to monitor pt is stable - Epogen and Venofer started 5. HTN - d/c Lisinopril due to worsening kidney fxn and d/c amlodipine which could be causing leg edema -cont Labetalol and Hydralazine - Pt also on Lasix #. DVT Prophylaxis with Heparin Discharge pt Home Discharge Exam - Head Exam Head Exam: ATRAUMATIC, NORMAL INSPECTION, NORMOCEPHALIC - Eye Exam Eye Exam: EOMI, Normal appearance, PERRL Pupil Exam: NORMAL ACCOMODATION - ENT Exam ENT Exam: Mucous Membranes Moist, Normal External Ear Exam - Neck Exam Neck exam: Full Rom - Respiratory Exam Respiratory Exam: NORMAL BREATHING PATTERN. absent: Rales, Wheezes, Respiratory Distress - Cardiovascular Exam Cardiovascular Exam: REGULAR RHYTHM, +S1, +S2 Additional comments: Permacath in place - GI/Abdominal Exam GI & Abdominal Exam: Normal Bowel Sounds, Soft. absent: Tenderness - Extremities Exam Extremities exam: full ROM, normal capillary refill, pedal pulses present - Back Exam Back exam: FULL ROM. absent: CVA tenderness (L), CVA tenderness (R), vertebral tenderness - Neurological Exam Neurological exam: Alert, CN II-XII Intact, Normal Gait, Oriented x3, Reflexes Normal - Psychiatric Exam Psychiatric exam: Normal Affect, Normal Mood - Skin Skin Exam: Dry, Normal Color, Warm Discharge Plan - Discharge Medications Prescriptions: amLODIPine [Norvasc] 10 mg PO DAILY #30 tab Calcitriol [Rocaltrol] 0.25 mcg PO MWF #30 sgl Carvedilol [Coreg] 6.25 mg PO Q12 #60 tab Ergocalciferol [Drisdol 50,000 Intl Units Cap] 1 cap PO Q7D #10 cap Furosemide [Lasix] 20 mg PO BID #60 tablet hydrALAZINE [Apresoline] 25 mg PO TID #90 tab - Follow Up Plan Condition: GOOD Disposition: HOME/ ROUTINE Instructions: Hemodialysis, Kidney Biopsy, Arteriovenous Fistula for Dialysis, Dialysis Catheter Additional Instructions: follow up with primary MD [address] Britton vasquez cont Hemodialysis 3x per week TTHS Referrals: [facility] [Outside] Phil Jarquin MD [Staff Provider] -
[2018-01-08 16:11] VITALS: RESP 19; TEMP 99.2; O2SAT 95
[2018-01-08 16:40] VITALS: BP 133/78; PULSE 71
--- NOTE | 2018-01-12 09:58 | CT ---
PROCEDURE: Date of procedure: 01/03/2018 Procedure: Ultrasound-guided left renal biopsy, CPT 55776 Ultrasound guidance for biopsy, 28573 Medication: 8 cc 2% Lidocaine, patient received IV sedation by the anesthesiologist along with physiologic monitoring. HISTORY: Renal failure TECHNIQUE: Following informed consent and procedure time-out, the patient was placed prone on the interventional table and a limited ultrasound showed slightly echogenic left kidney consistent with medical renal disease. There is no hydronephrosis or mass. The patient left back was prepped and draped in the usual sterile fashion. After patient sedated by the anesthesiologist and the skin anesthetized with lidocaine, an 18 gauge core needle was advanced percutaneously towards the lower pole cortex. Upon confirmation of needle position, three-18 gauge core specimens were obtained and sent for routine pathology. The biopsy tract was then embolized with Gelfoam. A post biopsy ultrasound showed no hematoma. There were no immediate complications. IMPRESSION: Ultrasound-guided left renal biopsy.
== END 2018-01-08 17:21 | disposition home or self-care (01) | DRG 316 ==
LOC: H.ER 03:04 → H.ERHOLD 04:25 → H.MEDSURG1 06:14 → H.TEL 01-03 14:42 → H.MEDSURG1 01-05 01:11
PROVIDERS: ADMIT Internal Medicine; ATTEND Internal Medicine
PROC: 3E0234Z Introduction of Serum, Toxoid and Vaccine into Muscle, Percutaneous Approach (ICD-10-PCS; 2017-12-29)
PROC: 0TB13ZX Excision of Left Kidney, Percutaneous Approach, Diagnostic (ICD-10-PCS; 2018-01-03)
PROC: 05HM33Z Insertion of Infusion Device into Right Internal Jugular Vein, Percutaneous Approach (ICD-10-PCS; 2018-01-03)
PROC: 5A1D70Z Performance of Urinary Filtration, Intermittent, Less than 6 Hours Per Day (ICD-10-PCS; principal; 2018-01-04)
DX: N17.9 Acute kidney failure, unspecified (principal); E11.22 Type 2 diabetes mellitus with diabetic chronic kidney disease; E11.649 Type 2 diabetes mellitus with hypoglycemia without coma; E87.1 Hypo-osmolality and hyponatremia; I12.0 Hypertensive chronic kidney disease with stage 5 chronic kidney disease or end stage renal disease; E11.21 Type 2 diabetes mellitus with diabetic nephropathy; D63.1 Anemia in chronic kidney disease; E78.00 Pure hypercholesterolemia, unspecified; E78.5 Hyperlipidemia, unspecified; E83.51 Hypocalcemia; G93.41 Metabolic encephalopathy; L40.9 Psoriasis, unspecified; Z91.14 Patient's other noncompliance with medication regimen; Z87.891 Personal history of nicotine dependence; Z23 Encounter for immunization; N25.81 Secondary hyperparathyroidism of renal origin; M89.8X9 Other specified disorders of bone, unspecified site; N18.6 End stage renal disease; Z99.2 Dependence on renal dialysis